=== PATIENT | male | born 1940 | race Caucasian/White ===

== ENCOUNTER 2020-10-26 11:43 | Outpatient (REF) | payer MEDICARE, SELFPAY ==
[2020-10-26 13:22] LABS: Alanine Aminotransferase 19 U/L (0-40); Albumin Level 4.3 g/dL (3.5-5.0); Alkaline Phosphatase 104 U/L (39-117); Anion Gap 13 (12-20); Aspartate Amino Transferase 26 U/L (5-37); Bilirubin Total 0.7 mg/dL (0.0-1.0); Blood Urea Nitrogen 18 mg/dL (9-16); Chloride 104 mmol/L (96-108); Cholesterol 166 mg/dL; Estimated Glomerular Filt Rate > 60; Glucose Fasting 97 mg/dL (60-99); HDL Cholesterol 59 mg/dL; LDL Cholesterol Calculated 92 mg/dl; Potassium 4.2 mmol/l (3.3-5.1); Sodium 139 mmol/L (135-145); Total Protein 6.9 g/dL (6.5-8.0); Triglycerides 76 mg/dL
[2020-10-26 13:24] LABS: Carbon Dioxide 26 mmol/L (22-29)
[2020-10-26 13:37] LABS: Prostate Specific Antigen Scr 0.25 ng/mL (<0.05-4.0)
== END 2020-10-26 11:44 | disposition home or self-care (01) ==
LOC: HO.LAB 11:43
PROVIDERS: PCP Physician Assistant; Visit Provider Physician Assistant
DX: I10 Essential (primary) hypertension (principal); E78.5 Hyperlipidemia, unspecified; R73.09 Other abnormal glucose
CPT/HCPCS: 80053; 80061; 84153; 84443

== ENCOUNTER 2020-11-03 12:06 | Outpatient (REF) | payer MEDICARE, SELFPAY ==
[2020-11-03 12:58] LABS: MANUAL DIFF FLAG NO
[2020-11-03 13:07] LABS: Basophils Percent Auto 0.6 % (0-2); Eosinophils Absolute Auto 0.1 X10*3/uL (0.0-0.4); Eosinophils Percent Auto 1.6 % (0-4); Hematocrit 37.3 % (42-52); Hemoglobin 12.4 g/dl (14.0-18.0); Imm Gran Abs Auto 0.01 X10*3/uL (0.00-0.03); Imm Gran Pct Auto 0.2 % (0.0-0.4); Lymphocytes Absolute Auto 1.2 X10*3/uL (1.2-4.9); Mean Corpuscular HGB Conc 33.2 g/dl (31.0-36.0); Mean Corpuscular Hemoglobin 29.7 pg (27.0-33.0); Mean Corpuscular Volume 89.4 fL (80-98); Mean Platelet Volume 9.9 fL (9.4-12.4); Monocytes Absolute Auto 0.4 X10*3/uL (0.1-1.2); Monocytes Percent Auto 8.4 % (2-11); Neutrophils Absolute Auto 3.2 X10*3/uL (2.0-8.3); Neutrophils Percent Auto 65.2 % (45-73); Platelet Count 244 X10*3/uL (160-400); Red Blood Count 4.17 X10*6/uL (4.60-5.80); Red Cell Distribution Width 13.5 % (11.0-16.0); White Blood Count 4.9 X10*3/uL (4.8-10.8)
[2020-11-03 13:44] LABS: Alanine Aminotransferase 17 U/L (0-40); Albumin Level 4.3 g/dL (3.5-5.0); Alkaline Phosphatase 103 U/L (39-117); Anion Gap 12 (12-20); Aspartate Amino Transferase 24 U/L (5-37); Bilirubin Total 0.6 mg/dL (0.0-1.0); Blood Urea Nitrogen 15 mg/dL (9-16); Calcium 9.1 mg/dL (8.4-10.2); Carbon Dioxide 28 mmol/L (22-29); Chloride 104 mmol/L (96-108); Cholesterol 164 mg/dL; Estimated Glomerular Filt Rate > 60; Glucose Fasting 106 mg/dL (60-99); HDL Cholesterol 65 mg/dL; LDL Cholesterol Calculated 84 mg/dl; Potassium 4.2 mmol/l (3.3-5.1); Sodium 140 mmol/L (135-145); Total Protein 7.2 g/dL (6.5-8.0); Triglycerides 78 mg/dL
[2020-11-03 13:58] LABS: TSH reflex Free T4 0.85 mIU/mL (0.32-4.0)
[2020-11-03 13:59] LABS: Prostate Specific Antigen 0.28 ng/mL (<0.05-4.0)
== END 2020-11-03 12:07 | disposition home or self-care (01) ==
LOC: HO.LAB 12:06
PROVIDERS: Physician Assistant; Visit Provider Urology
DX: E78.1 Pure hyperglyceridemia (principal); I10 Essential (primary) hypertension; Z12.5 Encounter for screening for malignant neoplasm of prostate; Z85.46 Personal history of malignant neoplasm of prostate
CPT/HCPCS: 36415; 80053; 80061; 84153; 84443; 85025

== ENCOUNTER 2020-11-22 16:06 | Outpatient (REF) | payer MEDICARE, SELFPAY | END 2020-11-22 16:07 | disposition home or self-care (01) | LOC: HO.LAB 16:06 | PROVIDERS: PCP Physician Assistant; Visit Provider Internal Medicine | DX: Z20.828 Contact with and (suspected) exposure to other viral communicable diseases (principal) | CPT/HCPCS: C9803; U0003 ==

== ENCOUNTER → 2020-11-23 13:22 | Outpatient (BNVA) | payer MEDICARE, SELFPAY | PROVIDERS: Visit Provider Urology | DX: C61 Malignant neoplasm of prostate (principal); R97.20 Elevated prostate specific antigen [PSA] | CPT/HCPCS: 96402; 99212; J9217 ==

== ENCOUNTER 2021-01-11 14:30 | Outpatient (REF) | payer MEDICARE, SELFPAY | END 2021-01-11 14:31 | disposition home or self-care (01) | LOC: HO.LAB 14:30 | PROVIDERS: Visit Provider Internal Medicine | DX: Z20.822 Contact with and (suspected) exposure to COVID-19 (principal) | CPT/HCPCS: 36415; C9803; U0003; U0005 ==

== ENCOUNTER 2021-02-13 11:57 | Outpatient (REF) | payer MEDICARE, SELFPAY ==
[2021-02-13 13:29] LABS: Prostate Specific Antigen 0.28 ng/mL (<0.05-4.0)
== END 2021-02-13 11:58 | disposition home or self-care (01) ==
LOC: HO.LAB 11:57
PROVIDERS: Visit Provider Urology
DX: Z12.5 Encounter for screening for malignant neoplasm of prostate (principal); C61 Malignant neoplasm of prostate
CPT/HCPCS: 36415; 84153

== ENCOUNTER → 2021-02-28 14:09 | Outpatient (BNVA) | payer MEDICARE, SELFPAY | PROVIDERS: Visit Provider Urology | DX: C61 Malignant neoplasm of prostate (principal) | CPT/HCPCS: 99212 ==

== ENCOUNTER 2021-05-03 12:24 | Outpatient (REF) | payer MEDICARE, SELFPAY ==
[2021-05-03 13:43] LABS: Hematocrit 36.6 % (42-52); Mean Corpuscular HGB Conc 32.8 g/dl (31.0-36.0); Mean Corpuscular Hemoglobin 28.8 pg (27.0-33.0); Mean Corpuscular Volume 87.8 fL (80-98); Mean Platelet Volume 10.4 fL (9.4-12.4); Platelet Count 231 X10*3/uL (160-400); Red Blood Count 4.17 X10*6/uL (4.60-5.80); White Blood Count 5.9 X10*3/uL (4.8-10.8)
[2021-05-03 16:11] LABS: Estimated Average Glucose 126 mg/dL
[2021-05-03 16:31] LABS: TSH reflex Free T4 0.53 uIU/mL (0.32-4.0)
[2021-05-03 16:39] LABS: Alanine Aminotransferase 14 U/L (0-40); Albumin Level 4.3 g/dL (3.5-5.0); Alkaline Phosphatase 106 U/L (39-117); Anion Gap 12 (12-20); Aspartate Amino Transferase 25 U/L (5-37); Bilirubin Total 0.5 mg/dL (0.0-1.0); Blood Urea Nitrogen 17 mg/dL (9-16); Calcium 9.4 mg/dL (8.4-10.2); Carbon Dioxide 28 mmol/L (22-29); Chloride 105 mmol/L (96-108); Cholesterol 162 mg/dL; Estimated Glomerular Filt Rate > 60; Glucose Fasting 107 mg/dL (60-99); HDL Cholesterol 51 mg/dL; LDL Cholesterol Calculated 90 mg/dl; Potassium 4.1 mmol/L (3.3-5.1); Sodium 141 mmol/L (135-145); Triglycerides 108 mg/dL
== END 2021-05-03 12:25 | disposition home or self-care (01) ==
LOC: HO.LAB 12:24
PROVIDERS: Absent Provider Urology; PCP Physician Assistant; Visit Provider Physician Assistant
DX: I10 Essential (primary) hypertension (principal); E78.1 Pure hyperglyceridemia
CPT/HCPCS: 36415; 80053; 80061; 83036; 84443; 85027

== ENCOUNTER → 2021-05-16 13:46 | Outpatient (BNVA) | payer MEDICARE, SELFPAY | PROVIDERS: Visit Provider Urology | DX: C61 Malignant neoplasm of prostate (principal) | CPT/HCPCS: 96402; 99212; J9217 ==

== ENCOUNTER 2021-10-16 15:01 | Outpatient (REF) | payer MEDICARE, SELFPAY ==
[2021-10-16 17:29] LABS: Prostate Specific Antigen 1.05 ng/mL (<0.05-4.0)
[2021-10-20 08:56] LABS: Testosterone, Total 35 ng/dL (250-1100)
== END 2021-10-16 15:02 | disposition home or self-care (01) ==
LOC: HO.HMGCLDS 15:01
PROVIDERS: Visit Provider Urology
DX: Z12.5 Encounter for screening for malignant neoplasm of prostate (principal); C61 Malignant neoplasm of prostate; N13.8 Other obstructive and reflux uropathy; N40.1 Benign prostatic hyperplasia with lower urinary tract symptoms
CPT/HCPCS: 36415; 84153; 84403

== ENCOUNTER 2021-10-24 09:07 | Outpatient (REF) | payer MEDICARE, SELFPAY ==
--- NOTE | ~2021-10-24 | MM_ITS ---
EXAMINATION: BONE DENSITOMETRY CLINICAL INDICATION: M85.80 - Other specified disorders of bone density. COMPARISON: None (current study represents initial baseline exam). TECHNIQUE: Using a [employer] DXA System (software version: 13.1) manufactured by [employer], dual-energy x-ray absorptiometry was performed of the lumbar spine and left hip. The images are of good technical quality. Summary results are attached. FINDINGS: AP SPINE L1-L4: BMD 1.426 g/cm2, Z-score 2.9, T-score 1.7, normal. LEFT FEMUR, NECK: BMD 0.562 g/cm2, Z-score -2.0, T-score -3.9, osteoporosis. LEFT FEMUR, TOTAL: BMD 0.738 g/cm2, Z-score -1.0, T-score -2.5, osteoporosis. IDENTIFIED RISK FACTORS: Unsteady gait. HISTORY OF FRACTURE: None listed. MEDICATIONS: None listed. MM/XR DEXA axial skeleton IMPRESSION: 1. DIAGNOSIS: Osteoporosis based on the lowest T-score value of -3.9 in the femoral neck applying World Health Organization criteria. 2. 10-YEAR FRACTURE RISK PREDICTION, FRAX: According to the guidelines, FRAX calculation should only be performed on patients in the osteopenia bone density category. 3. Treatment Recommendations: NOF guidelines recommend consideration for treatment in postmenopausal women and men age 50 and older presenting with the following: -A hip or vertebral (clinical or morphometric) fracture. -T-score less than or equal to -2.5 at the femoral neck or spine after appropriate evaluation to exclude secondary causes. -Low bone mass at the hip or spine and a 10-year fracture probability by FRAX of greater than or equal to 3% for hip fracture or greater than or equal to 20% for major osteoporotic fracture based on the [place] adapted WHO algorithm. 4. Other Recommendations: All treatment decisions require clinical judgment and consideration of individual patient factors, including patient preferences, comorbidities, and previous drug use. Additional medical evaluation for secondary cause of low bone mineral density may be appropriate. FUTURE SCAN RECOMMENDATION: People with diagnosed cases of osteoporosis or at high risk for fracture should have regular bone mineral density tests. For patients eligible for Medicare, routine testing is allowed once every 2 years. The testing frequency can be increased to one year for patients who have rapidly progressing disease, those who are receiving or discontinuing medical therapy to restore bone mass, or have additional risk factors.
== END 2021-10-24 09:08 | disposition home or self-care (01) ==
LOC: HO.MAMMO 09:07
PROVIDERS: Visit Provider Urology
DX: Z13.820 Encounter for screening for osteoporosis (principal); M81.0 Age-related osteoporosis without current pathological fracture; M85.80 Other specified disorders of bone density and structure, unspecified site; C61 Malignant neoplasm of prostate
CPT/HCPCS: 77080

== ENCOUNTER → 2021-10-31 12:41 | Outpatient (BNVA) | payer MEDICARE, SELFPAY | PROVIDERS: PCP Physician Assistant; Visit Provider Urology | DX: Z13.89 Encounter for screening for other disorder (principal) | CPT/HCPCS: Q3014 ==

== ENCOUNTER 2022-04-05 15:43 | Outpatient (REF) | payer MEDICARE, SELFPAY ==
[2022-04-05 16:27] LABS: Hematocrit 33.9 % (42.0-52.0); Hemoglobin 11.2 g/dl (14.0-18.0); Mean Corpuscular Hemoglobin 29.2 pg (27.0-33.0); Mean Corpuscular Volume 88.3 fL (80.0-98.0); Platelet Count 212 X10*3/uL (160-400); Red Blood Count 3.84 X10*6/uL (4.60-5.80); Red Cell Distribution Width 14.6 % (11.0-16.0); White Blood Count 6.5 X10*3/uL (4.8-10.8)
[2022-04-05 16:41] LABS: Estimated Average Glucose 120 mg/dL; Hemoglobin A1c % 5.8 %
[2022-04-05 16:45] LABS: Creatinine Urine 146.05 mg/dL; Microalbum/Creatinine Ratio Ur 11.6 ug/mg cr
[2022-04-05 16:48] LABS: Alanine Aminotransferase 28 U/L (0-40); Albumin Level 4.4 g/dL (3.5-5.0); Alkaline Phosphatase 103 U/L (39-117); Anion Gap 13 (12-20); Aspartate Amino Transferase 28 U/L (5-37); Bilirubin Total 0.3 mg/dL (0.0-1.0); Blood Urea Nitrogen 19 mg/dL (9-16); Calcium 9.4 mg/dL (8.4-10.2); Carbon Dioxide 27 mmol/L (22-29); Chloride 103 mmol/L (96-108); Cholesterol 167 mg/dL; Estimated Glomerular Filt Rate > 60; Glucose Fasting 93 mg/dL (60-99); HDL Cholesterol 54 mg/dL; LDL Cholesterol Calculated 92 mg/dl; Potassium 4.5 mmol/L (3.3-5.1); Sodium 138 mmol/L (135-145); Total Protein 7.3 g/dL (6.5-8.0); Triglycerides 106 mg/dL
[2022-04-05 17:08] LABS: TSH reflex Free T4 0.78 uIU/mL (0.32-4.0)
[2022-04-05 17:44] LABS: Prostate Specific Antigen 8.33 ng/mL (<0.05-4.0)
[2022-04-10 01:56] LABS: Testosterone, Total 128 ng/dL (250-1100)
== END 2022-04-05 15:44 | disposition home or self-care (01) ==
LOC: HO.LAB 15:43
PROVIDERS: PCP Physician Assistant; Visit Provider Urology
DX: I10 Essential (primary) hypertension (principal); E78.1 Pure hyperglyceridemia; C61 Malignant neoplasm of prostate; R73.02 Impaired glucose tolerance (oral); Z12.5 Encounter for screening for malignant neoplasm of prostate
CPT/HCPCS: 36415; 80053; 80061; 82043; 83036; 84153; 84403; 84443; 85027

== ENCOUNTER → 2022-05-01 13:45 | Outpatient (BNVA) | payer MEDICARE, SELFPAY | PROVIDERS: PCP Physician Assistant; Visit Provider Urology | DX: C61 Malignant neoplasm of prostate (principal); M81.0 Age-related osteoporosis without current pathological fracture | CPT/HCPCS: 96372; 99212; J0897 ==

== ENCOUNTER 2022-10-25 08:01 | Outpatient (REF) | payer MEDICARE, SELFPAY ==
[2022-10-25 11:24] LABS: Hematocrit 38.2 % (42.0-52.0); Hemoglobin 12.2 g/dl (14.0-18.0); Mean Corpuscular HGB Conc 31.9 g/dl (31.0-36.0); Mean Corpuscular Volume 90.7 fL (80.0-98.0); Mean Platelet Volume 10.6 fL (9.4-12.4); Platelet Count 238 X10*3/uL (160-400); Red Blood Count 4.21 X10*6/uL (4.60-5.80); Red Cell Distribution Width 14.7 % (11.0-16.0); White Blood Count 5.9 X10*3/uL (4.8-10.8)
[2022-10-25 12:09] LABS: TSH reflex Free T4 1.35 uIU/mL (0.32-4.0)
[2022-10-25 12:27] LABS: Alanine Aminotransferase 40 U/L (0-40); Albumin Level 4.6 g/dL (3.5-5.0); Alkaline Phosphatase 99 U/L (39-117); Anion Gap 11 (12-20); Aspartate Amino Transferase 35 U/L (5-37); Bilirubin Total 0.3 mg/dL (0.0-1.0); Blood Urea Nitrogen 17 mg/dL (9-16); Calcium 9.4 mg/dL (8.4-10.2); Carbon Dioxide 29 mmol/L (22-29); Chloride 102 mmol/L (96-108); Cholesterol 170 mg/dL; Estimated Glomerular Filt Rate > 60; Glucose Fasting 103 mg/dL (60-99); HDL Cholesterol 53 mg/dL; LDL Cholesterol Calculated 81 mg/dl; Potassium 4.5 mmol/L (3.3-5.1); Prostate Specific Antigen 11.71 ng/mL (<0.05-4.0); Sodium 137 mmol/L (135-145); Total Protein 7.5 g/dL (6.5-8.0); Triglycerides 180 mg/dL
[2022-10-31 11:54] LABS: Testosterone, Total 203 ng/dL (250-1100)
== END 2022-10-25 08:02 | disposition home or self-care (01) ==
LOC: HO.HMGCLDS 08:01
PROVIDERS: PCP Physician Assistant; Visit Provider Urology
DX: C61 Malignant neoplasm of prostate (principal); I10 Essential (primary) hypertension; E78.1 Pure hyperglyceridemia
CPT/HCPCS: 36415; 80053; 80061; 84153; 84403; 84443; 85027

== ENCOUNTER → 2022-10-31 14:12 | Outpatient (BNVA) | payer MEDICARE, SELFPAY | PROVIDERS: PCP Physician Assistant; Visit Provider Urology | DX: C61 Malignant neoplasm of prostate (principal); M81.0 Age-related osteoporosis without current pathological fracture | CPT/HCPCS: 96372; 99212; J0897 ==

== ENCOUNTER → 2022-12-03 13:39 | Outpatient (BNVA) | payer MEDICARE, SELFPAY | PROVIDERS: PCP Physician Assistant; Visit Provider Urology | DX: C61 Malignant neoplasm of prostate (principal) | CPT/HCPCS: 96402; J9217 ==

== ENCOUNTER 2023-01-21 08:13 | Outpatient (REF) | payer MEDICARE, SELFPAY ==
[2023-01-21 12:48] LABS: Prostate Specific Antigen 10.72 ng/mL (<0.05-4.0)
[2023-01-28 10:28] LABS: Testosterone, Total 208 ng/dL (250-1100)
== END 2023-01-21 08:14 | disposition home or self-care (01) ==
LOC: HO.HMGCLDS 08:13
PROVIDERS: PCP Physician Assistant; Visit Provider Urology
DX: Z12.5 Encounter for screening for malignant neoplasm of prostate (principal); C61 Malignant neoplasm of prostate
CPT/HCPCS: 36415; 84153; 84403

== ENCOUNTER → 2023-02-05 12:33 | Outpatient (BNVA) | payer MEDICARE, SELFPAY | PROVIDERS: PCP Physician Assistant; Visit Provider Urology | DX: C61 Malignant neoplasm of prostate (principal); R97.21 Rising PSA following treatment for malignant neoplasm of prostate | CPT/HCPCS: 99212 ==

== ENCOUNTER → 2023-02-15 12:58 | Outpatient (BNVA) | payer MEDICARE, SELFPAY | PROVIDERS: PCP Physician Assistant; Visit Provider Urology | DX: M81.0 Age-related osteoporosis without current pathological fracture (principal); C61 Malignant neoplasm of prostate; R97.21 Rising PSA following treatment for malignant neoplasm of prostate | CPT/HCPCS: Q3014 ==

== ENCOUNTER 2023-05-06 08:01 | Outpatient (REF) | payer MEDICARE, SELFPAY ==
[2023-05-06 11:30] LABS: Hematocrit 34.6 % (42.0-52.0); Hemoglobin 11.1 g/dl (14.0-18.0); Mean Corpuscular HGB Conc 32.1 g/dl (31.0-36.0); Mean Corpuscular Hemoglobin 28.5 pg (27.0-33.0); Mean Corpuscular Volume 88.7 fL (80.0-98.0); Mean Platelet Volume 10.7 fL (9.4-12.4); Platelet Count 234 X10*3/uL (160-400); Red Cell Distribution Width 15.9 % (11.0-16.0)
[2023-05-06 12:04] LABS: TSH reflex Free T4 1.04 uIU/mL (0.32-4.0)
[2023-05-06 12:17] LABS: Prostate Specific Antigen 2.79 ng/mL (<0.05-4.0)
[2023-05-12 11:32] LABS: Testosterone, Total 113 ng/dL (250-1100)
== END 2023-05-06 08:02 | disposition home or self-care (01) ==
LOC: HO.HMGCLDS 08:01
PROVIDERS: Absent Provider Urology; PCP Physician Assistant; Visit Provider Physician Assistant
DX: C61 Malignant neoplasm of prostate (principal); I10 Essential (primary) hypertension; Z12.5 Encounter for screening for malignant neoplasm of prostate
CPT/HCPCS: 36415; 84153; 84403; 84443; 85027

== ENCOUNTER → 2023-05-23 10:38 | Outpatient (BNVA) | payer MEDICARE, SELFPAY | PROVIDERS: Visit Provider Urology | DX: R97.21 Rising PSA following treatment for malignant neoplasm of prostate (principal); M81.0 Age-related osteoporosis without current pathological fracture; C61 Malignant neoplasm of prostate | CPT/HCPCS: 96372; 96402; 99212; J0897; J9217 ==

== ENCOUNTER 2023-08-12 07:55 | Outpatient (REF) | payer MEDICARE, SELFPAY ==
[2023-08-12 11:35] LABS: Hematocrit 36.4 % (42.0-52.0); Hemoglobin 11.7 g/dl (14.0-18.0); Mean Corpuscular HGB Conc 32.1 g/dl (31.0-36.0); Mean Corpuscular Hemoglobin 28.7 pg (27.0-33.0); Mean Corpuscular Volume 89.4 fL (80.0-98.0); Mean Platelet Volume 10.6 fL (9.4-12.4); Platelet Count 248 X10*3/uL (160-400); Red Blood Count 4.07 X10*6/uL (4.60-5.80); Red Cell Distribution Width 15.8 % (11.0-16.0); White Blood Count 5.5 X10*3/uL (4.8-10.8)
[2023-08-12 12:03] LABS: Alanine Aminotransferase 22 U/L (0-40); Albumin Level 4.4 g/dL (3.5-5.0); Alkaline Phosphatase 81 U/L (39-117); Anion Gap 10 (12-20); Aspartate Amino Transferase 27 U/L (5-37); Bilirubin Total 0.4 mg/dL (0.0-1.0); Blood Urea Nitrogen 17 mg/dL (9-16); Calcium 9.1 mg/dL (8.4-10.2); Carbon Dioxide 27 mmol/L (22-29); Chloride 108 mmol/L (96-108); Cholesterol 159 mg/dL (<200); Estimated Glomerular Filt Rate > 60; Glucose Fasting 99 mg/dL (60-99); HDL Cholesterol 50 mg/dL (>40); LDL Cholesterol Calculated 85 mg/dL (<100); Potassium 4.1 mmol/L (3.3-5.1); Sodium 141 mmol/L (135-145); Total Protein 7.6 g/dL (6.5-8.0); Triglycerides 124 mg/dL (<150)
[2023-08-12 12:11] LABS: Prostate Specific Antigen 4.57 ng/mL (<0.05-4.0)
[2023-08-15 13:04] LABS: Creatinine Urine 242.16 mg/dL; Microalbum/Creatinine Ratio Ur 14.4 ug/mg cr (<30)
[2023-08-16 13:42] LABS: Testosterone, Total 50 ng/dL (250-1100)
== END 2023-08-12 07:56 | disposition home or self-care (01) ==
LOC: HO.HMGCLDS 07:55
PROVIDERS: Absent Provider Urology; PCP Physician Assistant; Visit Provider Physician Assistant
DX: Z12.5 Encounter for screening for malignant neoplasm of prostate (principal); C61 Malignant neoplasm of prostate; I10 Essential (primary) hypertension; E78.1 Pure hyperglyceridemia
CPT/HCPCS: 36415; 80053; 80061; 82043; 82570; 84153; 84403; 85027

== ENCOUNTER 2023-08-23 14:40 | Outpatient (AMB) | payer MEDICARE, SELFPAY ==
--- NOTE | 2023-08-23 14:41 | A.OFFVIS_ITS ---
Intake Intake Visit Reasons: 3m/PSA/Testosterone(set) Intake Note: Patient is Present for Telephone Follow Up For Labs Urology Med: Bicalutamide, Antibiotic Allergy: None Blood Thinner: None Pharamcy: [employer] Allergies No Known Allergies Allergy (Verified 05/23/23 10:55) Medication List - Last Reconciled 08/23/23 by Ranjan Stanley MD bicalutamide 50 mg PO DAILY 90 days buspirone 5 mg PO TID diclofenac sodium 75 mg PO BID PRN 15 days diclofenac sodium 1% 2 grams topical QID 30 days donepezil (Aricept) 10 mg PO DAILY 90 days lisinopril 10 mg PO DAILY lovastatin 40 mg PO DAILY meclizine 25 mg PO DAILY PRN omega-3 fatty acids (Fish Oil Concentrate) 1,000 mg PO DAILY HPI HPI Comments History of Present Illness Details Mickey is pleasant male. He is a patient of Dr. Monahan. He seen for the following urologic conditions - prostate cancer - osteoporosis Telemedicine Evaluation 15 min Consultation DoxGarpun Leandra Video attempted 08/17 Rising PSA despite appropriate horm one shot stop bicalutamide - repeat PSA in 4 weeks 05/17 Here for repeat GnRH and Prolia 02/14 added bicalutamide Prostate cancer - Last GnRH 11/[address] 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 DEXA scan 10/15 osteoporosis PFSH Medical History Acid reflux Elevated PSA Primary osteoarthritis of left knee Prostate cancer Prostate cancer Rotator cuff tear Rotator cuff tear arthropathy of right shoulder Tendinitis of right rotator cuff Surgical History H/O hand surgery History of tonsillectomy Hx of release of tendon Family History Father Liver cancer Mother Heart disease Brother Healthy adult male Social History Housing: House Alcohol intake: never Patient Tobacco Use Status: Never used Tobacco e-Cigarette/Vaping Use: Never Used Second Hand Smoke Exposure: No service: No Current occupational status: retired Cognitive needs: Yes (cane) Hearing needs: No Vision needs: No Review of Systems Const All systems reviewed & are unremarkable except as noted in HPI and below Reports no additional complaints Resp Reports no additional complaints GI Reports no additional complaints Reports as per HPI Musc Reports no additional complaints Physical Exam Telemedicine evaluation Appropriate responses Regular breathing rate and rhythm HEENT Head: Yes normal to inspection Ears: hearing grossly normal bilaterally Eyes General: appearance normal, both eyes and all related structures Neck Neck: Yes normal visual inspection Chest Chest palpation & inspection: normal inspection of the chest Resp Effort & Inspection: normal respiratory effort and able to speak in complete sentences Assessment & Plan Assessment & Plan (1) Rising PSA following treatment for malignant neoplasm of prostate: Code(s): R97.21 - Rising PSA following treatment for malignant neoplasm of prostate Plan Stop Bicalutamide Repeat PSA in 4 weeks Orders: Orders Prostate Specific Antigen 1 Month C61 - Malignant neoplasm of prostate Patient Instructions: Imaging studies, laboratory and physical exam results were discussed and reviewed in detail. No major barriers to patient understanding were identified. An opportunity to ask questions regarding the treatment plan was provided. All questions were answered. The patient expressed understanding and agreement with the above treatment plan. The patient is aware they should contact our office by phone for worsening of their current condition or the appearance of new urologic symptoms. Compliance is encouraged with any medications and followup testing that is ordered. It is a privilege to participate in the urologic care of your patient. If you have any questions or concerns regarding treatment for the above conditions, or other urologic issues, please do not hesitate to contact me. The office telephone contact is [phone]. This note is constructed using voice recognition software. While every effort has been made to ensure accuracy dredge pump operator errors may have been included. Yours sincerely, Dr Ranjan Stanley MD, [facility] - Urology Providers of Expert, Compassionate Care for the Genitourinary System Telehealth Telehealth Location of provider rendering services: practice address Location of patient: address on file Patient Identification confirmed using: Name, : Yes Telehealth method: video Patient verbally consented to treatment: Yes Patient verbally consented to billing insurance company: Yes Patient informed of any privacy concerns related to visit: Yes Coding Level of Care Code Tele Est Pt Level 3 (15871) Diagnoses Rising PSA following treatment for malignant neoplasm of prostate R97.21
== END 2023-08-23 15:21 | disposition home or self-care (01) ==
LOC: HO.HUSH 14:40
PROVIDERS: PCP Physician Assistant; Visit Provider Urology
DX: R97.21 Rising PSA following treatment for malignant neoplasm of prostate (principal)
CPT/HCPCS: 99213

== ENCOUNTER → 2023-08-23 14:40 | Outpatient (BNVA) | payer MEDICARE, SELFPAY | PROVIDERS: PCP Physician Assistant; Visit Provider Urology ==

== ENCOUNTER 2023-10-01 11:33 | Outpatient (REF) | payer MEDICARE, SELFPAY ==
--- NOTE | ~2023-10-01 | PE_ITS ---
EXAMINATION: 68Ga-PSMA (ILLUCCIX) PET/CT CLINICAL INDICATION: Subsequent treatment management. Prostate cancer with rising PSA, restaging. PROCEDURE: Radiopharmaceutical: 68Ga-PSMA (Illuccix); Dose: 5.5 mCi injected in the left antecubital fossa. Image acquisition: 65 minutes following IV radiotracer administration, positron emission tomography was performed from the mid thighs to vertex. Non-contrast low-dose helical CT imaging was performed over the same range without breath-hold for attenuation correction of PET images and anatomic correlation. Total CT exam dose-length product 619.23 mGy-cm * These CT images were obtained using dose optimization techniques as appropriate, variously including the following: Automated exposure control * Adjustment of mA and/or kV according to patient size (this includes techniques or standardized protocols for targeted exams where dose is matched to indication/reason for exam; i.e. extremities or head) * Use of iterative reconstruction technique COMPARISON: No previous PET/CT scan is available for comparison. Additional Clinical information: Surgery:No ; XRT: No ADT: Unknown FINDINGS: NECK AND VISUALIZED HEAD: There are no foci of abnormal PSMA activity in this region. The distribution of activity appears physiological. THORAX: There are no foci of abnormal PSMA activity in the chest. There are no suspicious pulmonary nodules. There is no pleural or pericardial fluid, or pneumothorax. There is no mediastinal, supraclavicular, or axillary lymphadenopathy. ABDOMEN AND PELVIS: There is intense abnormal PSMA activity in the right posterolateral aspect of the mid to inferior aspect of the prostate gland, SUVmax 28.7, slice 222/311. No other foci of abnormal PSMA activity are noted in the abdomen or pelvis. The liver and spleen are unremarkable. There is some dependent sludge in the gallbladder but the gallbladder is otherwise unremarkable. There is a hypodense fluid density cyst posteriorly in the mid right kidney and this is photopenic on the PSMA PET images. The kidneys are otherwise unremarkable. The adrenal glands and pancreas are unremarkable. There is mild PSMA activity in the gastrointestinal tract, likely physiological. There is diverticulosis without evidence of diverticulitis. The hollow viscera are otherwise unremarkable. There is no retroperitoneal, mesenteric, pelvic or inguinal lymphadenopathy. MUSCULOSKELETAL: There are no foci of abnormal PSMA activity in the osseous structures. There is a mild well compensated thoracolumbar scoliosis with lumbar convexity to the left. There are moderate diffuse degenerative changes in the spine. There are no suspicious sclerotic or lytic lesions visualized. VASCULAR: Diffuse vascular calcifications including dense coronary calcifications. PET/PET CT fusion skull to thigh IMPRESSION: 1. Intense abnormal PSMA activity in the prostate gland is present as described above and this is strongly suspicious for recurrent prostate malignancy. 2. No additional foci of abnormal PSMA suspicious for metastatic or other malignant lesions are noted. 3. Diffuse vascular calcifications including coronary.
== END 2023-10-01 11:34 | disposition home or self-care (01) ==
LOC: HO.PET 11:33
PROVIDERS: PCP Physician Assistant; Visit Provider Urology
DX: Z13.89 Encounter for screening for other disorder (principal)

== ENCOUNTER 2023-10-16 12:49 | Outpatient (AMB) | payer MEDICARE, SELFPAY ==
--- NOTE | 2023-10-16 12:50 | A.OFFVIS_ITS ---
Intake Vital Signs 10/16/23 12:51 Height 5 ft 7 in Weight 147 lb 8 oz BMI 23.1 BP 128/64 Blood Pressure Location Lt brachial Position Sitting Respiration 17 Pulse 88 Pulse Source Pulse Oximeter Intake Visit Reasons: I-SLIP LASTER: Alzheimer's /Dementia - Conf Intake Note: Pt presents to the office for new pt evaluation for possible dementia. Pt is here with his son in law, Maximino, who is also his historian. He reports pt has been having alot of memory loss for several years. There is also a complaint of agitation, unsteady gait, hallucinations and sleep disturbances. He's been havin g some incontinence, though he is still is capable of dressing himself. Pt eats but doesn't remember he's had a meal a short time after. Fraud Examiner Required: No Allergies No Known Allergies Allergy (Verified 10/16/23 12:51) Medication List - Last Reconciled 10/16/23 by Trudy Crooks MD bicalutamide 50 mg PO DAILY 90 days buspirone 5 mg PO TID diclofenac sodium 75 mg PO BID PRN 15 days diclofenac sodium 1% 2 grams topical QID 30 days donepezil (Aricept) 10 mg PO DAILY 90 days lisinopril 10 mg PO DAILY lovastatin 40 mg PO DAILY meclizine 25 mg PO DAILY PRN melatonin 6 mg (2 x 3 mg) PO BEDTIME 30 days mirtazapine 7.5 mg PO BEDTIME omega-3 fatty acids (Fish Oil Concentrate) 1,000 mg PO DAILY HPI HPI Comments History of Present Illness Details 82y/o male comes here for further manage ment dementia. He is accompanied by his son in law who helps with history.His family noticed progressive memory issues and executive dysfunction about 2-3 years ago . He lives with his Girlfriend ( 40years ) and has been dependant on most of his ADLS. He needs help with medications , needs cuing for daily activity. He has anxiety and can become aggressive sometimes. He repeats questions. It is not clear if he has delusions, hallucinations.He stopped driving 2 years ago. He did boxing as a kid - but was only in1 fight so not clear if he has head injury. No known family h/o dementia. He has day night reversal , no known abnormal behavior in sleep. [facility] Medical History (Updated 10/16/23 @ 15:41 by Trudy Crooks MD) Alzheimer's dementia Prostate cancer Acid reflux Primary osteoarthritis of left knee Prostate cancer Elevated PSA Tendinitis of right rotator cuff Rotator cuff tear Rotator cuff tear arthropathy of right shoulder Surgical History Hx of release of tendon H/O hand surgery History of tonsillectomy Family History Father Liver cancer Mother Heart disease Brother Healthy adult male Household Members: Spouse Housing: House Alcohol intake: never Patient Tobacco Use Status: Never used Tobacco e-Cigarette/Vaping Use: Never Used Second Hand Smoke Exposure: No service: No Current occupational status: retired Cognitive needs: Yes (cane) Hearing needs: No Vision needs: No Review of Systems Neuro Reports confusion Psych Reports confusion Physical Exam Vital Signs: Last Vital Signs Pulse 88 10/16/23 12:51 Resp 17 10/16/23 12:51 BP 128/64 10/16/23 12:51 BMI result Body Mass Index 23.1 Const General: cooperative, healthy appearing, comfortable and confusion Nutritional Appearance: average body habitus Orientation/consciousness: confusion Eyes Pupils: Equal, round and reactive pupils present Neuro Other: Disoriented Unable to do MMSE walks with a cane, mildly impulsive General: tone normal, moves all extremities, no focal motor deficits and confusion Cranial nerves: Yes Facial sensation intact/muscles of mastication intact, Yes Equal, round and reactive pupils present, Yes Bilaterally intact EOM present, Yes Nystagmus not present, Yes Normal facial strength present, Yes Midline tongue present and Yes Ability to bilaterally elevate shoulders present Cognition (Neuro): abnormal cognition Motor exam (neuro): 5/5 motor strength present throughout and Normal motor muscle tone present throughout Deep tendon reflexes (DTR's): Right triceps reflex intensity grade: 1+, Left triceps reflex intensity grade: 1+, Rt Biceps (C5, C6): 1+, Left biceps reflex intensity grade: 1+, Right brachioradialis reflex intensity grade: 1+, Left brachioradialis reflex intensity grade: 1+, Right patellar reflex intensity grade: 1+ and Left patellar reflex intensity grade: 1+ Coordination: [id number] test normal Assessment & Plan Assessment & Plan (1) Alzheimer's dementia: Comment: moderate to severe Code(s): G30.9 - Alzheimer's disease, unspecified; F02.80 - Dementia in other diseases classified elsewhere, unspecified severity, without behavioral disturbance, psychotic disturbance, mood disturbance, and anxiety Plan Continue donepezil 10 mg qd I will trial him on mirtazepine 7.5 mg qhs for sleep Discussed the diagnosis and prognosis . will refer him to [facility]NA services to get some [employer]URING SUPERVISOR services Reviewed labs will order CT brain to r/o focal lesions will schedule a follow up with patient and his family for bed bug exterminator care planning Orders: Orders CT head/brain wo IV con 10/16/23 F02.80 - Dementia in other diseases classified elsewhere, unspecified severity, without behavioral disturbance, psychotic disturbance, mood disturbance, and anxiety, G30.9 - Alzheimer's disease, unspecified [facility]errals [facility] Referral F02.80 - Dementia in other diseases classified elsewhere, unspecified severity, without behavioral disturbance, psychotic disturbance, mood disturbance, and anxiety, G30.9 - Alzheimer's disease, unspecified Neurology Referral F02.80 - Dementia in other diseases classified elsewhere, unspecified severity, without behavioral disturbance, psychotic disturbance, mood disturbance, and anxiety, G30.9 - Alzheimer's disease, unspecified Medications: New mirtazapine 7.5 mg PO BEDTIME 30 tabs 6RF Coding Level of Care Code New Pt Level 4 (01419) Diagnoses Alzheimer's dementia G30.9; F02.80
[2023-10-16 12:51] VITALS: BP 128/64; PULSE 88; RESP 17; BMI 23.1
--- NOTE | 2024-02-19 09:09 | ...WebTmpl.AM.PHNO ---
Nursing Note Discussed with Mehreen patients about side effects to Mirtazepine. He was started on Mirtazepine 7.5 mg qhs on Sep 2023- Mehreen noticed change in personality , agitation and verbally aggressive. she stopped after 20 days. His cognition and behavior worsened and he has trouble with ADLS. He is incontinent on most nights, needs help with showers dressing and refuses sometimes, very confused- he tried to put napkins in the toaster oven .. He was started on mematine XR 7mg titrated to 21 mg - he did well with no side effects when he increased to 28 mg Mehreen also retrialed on mirtazepine - he had behavior issues and she is not clear if it is due to memantine or mirtazepine I suggested to stop mirtazepine and retrial memantine XR 28 mg [facility] starting next week- referred for long-term and OT Patient will benefit from Bi Architect placement in a Memory Care Unit . During todays conversation Mehreen seemed overwhelmed with his care.
== END 2023-10-16 13:47 | disposition home or self-care (01) ==
PROVIDERS: PCP Physician Assistant; Visit Provider Psychiatry & Neurology Neurology
DX: G30.9 Alzheimer's disease, unspecified (principal); F02.80 Dementia in other diseases classified elsewhere, unspecified severity, without behavioral disturbance, psychotic disturbance, mood disturbance, and anxiety
CPT/HCPCS: 99204

== ENCOUNTER → 2023-10-16 12:49 | Outpatient (BNVA) | payer MEDICARE, SELFPAY | PROVIDERS: PCP Physician Assistant; Visit Provider Psychiatry & Neurology Neurology | DX: G30.9 Alzheimer's disease, unspecified (principal); F02.80 Dementia in other diseases classified elsewhere, unspecified severity, without behavioral disturbance, psychotic disturbance, mood disturbance, and anxiety | CPT/HCPCS: 99202 ==

== ENCOUNTER 2023-10-21 13:33 | Outpatient (REF) | payer MEDICARE, SELFPAY | END 2023-10-21 13:34 | disposition home or self-care (01) | LOC: HO.LAB 13:33 | PROVIDERS: PCP Physician Assistant; Visit Provider Urology | DX: Z12.5 Encounter for screening for malignant neoplasm of prostate (principal); C61 Malignant neoplasm of prostate | CPT/HCPCS: 36415; 84153 ==

== ENCOUNTER 2023-10-23 13:05 | Outpatient (AMB) | payer MEDICARE, SELFPAY ==
--- NOTE | 2023-10-23 13:05 | A.OFFVIS_ITS ---
Intake Intake Visit Reasons: 6w/PSA/PET CT(set) Intake Note: Patient is Present for Telephone Follow Up For Labs Urology Med: Bicalutamide, Antibiotic Allergy: None Blood Thinner: None Pharamcy: Tiny Cdl Driver Required: No Accompanied by: Self / Same As Patient Allergies No Known Allergies Allergy (Verified 10/16/23 12:51) Medication List - Last Reconciled 10/23/23 by Ranjan Stanley MD bicalutamide 50 mg PO DAILY 90 days buspirone 5 mg PO TID diclofenac sodium 75 mg PO BID PRN 15 days diclofenac sodium 1% 2 grams topical QID 30 days donepezil (Aricept) 10 mg PO DAILY 90 days lisinopril 10 mg PO DAILY lovastatin 40 mg PO DAILY meclizine 25 mg PO DAILY PRN melatonin 6 mg (2 x 3 mg) PO BEDTIME 30 days mirtazapine 7.5 mg PO BEDTIME omega-3 fatty acids (Fish Oil Concentrate) 1,000 mg PO DAILY HPI HPI Comments History of Present Illness Details Mickey is pleasant male. He is a patient of Dr. Monahan. He seen for the following urologic conditions - prostate cancer - osteoporosis Telemedicine Evaluation 15 min Consultation Doximity Leandra Video attempted PSA fell of bicalutamide PET-CT shows localized prostate cancer activity Repeat lab work in 4 weeks, GnRH in Prolia in 6 weeks 10/17 PSA 2.8 PET/CT There is intense abnormal PSMA activity in the right posterolateral aspect of the mid to inferior aspect of the prostate gland 08/17 Rising PSA despite appropriate horm one shot stop bicalutamide - repeat PSA in 4 weeks - T 50 05/17 Here for repeat GnRH and Prolia 02/14 added bicalutamide Prostate cancer - Last GnRH 11/[address] 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 DEXA scan 10/15 osteoporosis PFSH Medical History (Updated 10/16/23 @ 15:41 by Trudy Crooks MD) Alzheimer's dementia Prostate cancer Acid reflux Primary osteoarthritis of left knee Prostate cancer Elevated PSA Tendinitis of right rotator cuff Rotator cuff tear Rotator cuff tear arthropathy of right shoulder Surgical History Hx of release of tendon H/O hand surgery History of tonsillectomy Family History Father Liver cancer Mother Heart disease Brother Healthy adult male Social History Household Members: Spouse Caregiver staying overnight: Yes Housing: House Alcohol intake: never Comment: seldom Patient Tobacco Use Status: Never used Tobacco e-Cigarette/Vaping Use: Never Used Second Hand Smoke Exposure: No service: No Current occupational status: retired Cognitive needs: Yes (cane) Hearing needs: No Vision needs: No Review of Systems Const All systems reviewed & are unremarkable except as noted in HPI and below Reports no additional complaints Resp Reports no additional complaints GI Reports no additional complaints Reports as per HPI Musc Reports no additional complaints Physical Exam Telemedicine evaluation Appropriate responses Regular breathing rate and rhythm HEENT Head: Yes normal to inspection Ears: hearing grossly normal bilaterally Eyes General: appearance normal, both eyes and all related structures Neck Neck: Yes normal visual inspection Chest Chest palpation & inspection: normal inspection of the chest Resp Effort & Inspection: normal respiratory effort and able to speak in complete sentences Assessment & Plan Assessment & Plan (1) Prostate cancer: Comment: Intermittent hormone therapy Code(s): C61 - Malignant neoplasm of prostate Plan Six week follow-up lab work, GnRH Orders: Orders Testosterone, Total 4 Weeks C61 - Malignant neoplasm of prostate Prostate Specific Antigen 4 Weeks E11.69 - Type 2 diabetes mellitus with other specified complication, N52.1 - Erectile dysfunction due to diseases classified elsewhere Patient Instructions: Imaging studies, laboratory and physical exam results were discussed and reviewed in detail. No major barriers to patient understanding were identified. An opportunity to ask questions regarding the treatment plan was provided. All questions were answered. The patient expressed understanding and agreement with the above treatment plan. The patient is aware they should contact our office by phone for worsening of their current condition or the appearance of new urologic symptoms. Compliance is encouraged with any medications and followup testing that is ordered. It is a privilege to participate in the urologic care of your patient. If you have any questions or concerns regarding treatment for the above conditions, or other urologic issues, please do not hesitate to contact me. The office telephone contact is [phone]. This note is constructed using voice recognition software. While every effort has been made to ensure accuracy insurance commissioner errors may have been included. Yours sincerely, Dr Ranjan Stanley MD, [facility] - Urology Providers of Expert, Compassionate Care for the Genitourinary System Telehealth Telehealth Location of provider rendering services: practice address Location of patient: address on file Patient Identification confirmed using: Name, : Yes Telehealth method: voice only Patient verbally consented to treatment: Yes Patient verbally consented to billing insurance company: Yes Patient informed of any privacy concerns related to visit: Yes Coding Level of Care Code Tele Est Pt Level 3 (71570) Diagnoses Prostate cancer C61
== END 2023-10-23 13:52 | disposition home or self-care (01) ==
LOC: HO.HUSH 13:05
PROVIDERS: PCP Physician Assistant; Visit Provider Urology
DX: C61 Malignant neoplasm of prostate (principal)
CPT/HCPCS: 99442

== ENCOUNTER → 2023-10-23 13:05 | Outpatient (BNVA) | payer MEDICARE, SELFPAY | PROVIDERS: PCP Physician Assistant; Visit Provider Urology ==

== ENCOUNTER 2023-11-28 08:11 | Outpatient (REF) | payer MEDICARE, SELFPAY ==
[2023-12-05 12:08] LABS: Testosterone, Total 5 ng/dL (250-1100)
== END 2023-11-28 08:12 | disposition home or self-care (01) ==
LOC: HO.HMGCLDS 08:11
PROVIDERS: PCP Physician Assistant; Visit Provider Urology
DX: C61 Malignant neoplasm of prostate (principal); E11.69 Type 2 diabetes mellitus with other specified complication; N52.1 Erectile dysfunction due to diseases classified elsewhere; Z12.5 Encounter for screening for malignant neoplasm of prostate
CPT/HCPCS: 36415; 84153; 84403

== ENCOUNTER 2023-12-04 11:29 | Outpatient (AMB) | payer MEDICARE, SELFPAY ==
--- NOTE | 2023-12-04 11:33 | A.OFFPC_ITS ---
Vital Signs 12/04/23 11:35 Height 5 ft 7 in Weight 148 lb 0.8 oz BMI 23.2 BP 130/62 Blood Pressure Location Lt brachial Position Sitting Pulse 58 Pulse Source Pulse Oximeter Pulse Oximetry (%) 97 Oxygen Delivery Method Room Air Intake Visit Reasons: 6M. F/U-HTN Enrollment Processor Required: No Allergies No Known Allergies Allergy (Verified 12/04/23 11:45) Medication List - Last Reconciled 12/04/23 by Thierry Monahan PA-C bicalutamide 50 mg PO DAILY 90 days buspirone 5 mg PO TID diclofenac sodium 75 mg PO BID PRN 15 days diclofenac sodium 1% 2 grams topical QID 30 days donepezil (Aricept) 10 mg PO DAILY 90 days lisinopril 10 mg PO DAILY lovastatin 40 mg PO DAILY meclizine 25 mg PO DAILY PRN melatonin 6 mg (2 x 3 mg) PO BEDTIME 30 days mirtazapine 7.5 mg PO BEDTIME omega-3 fatty acids (Fish Oil Concentrate) 1,000 mg PO DAILY Tobacco use date assessed: 12/04/23 Fall risk assessment: No Falls in past year Last assessed Fall Risk: 12/04/23 HPI 6M. F/U-HTN HPI Details .Patient is an 83-year-old male here today for a? follow-up visit.?Patient's past medical history significant hyperlipidemia, generalized anxiety disorder, prostate cancer, hypertension, progressive dementia. . .. Prostate cancer:? Is followed by urologist in is getting Lupron injections.? Has recently gotten DEXA screening due to being hormone therapy.? His recent PSA has drastically decreased with the addition of bicalutamide recently started on finasteride 5 mg Most recent PSA stable. .. Progressive dementia:? Does seem patient's memory continues to progress slowly.? Presents today with his who handles all affairs. Mickey seems to take good care of him. ? He has been?seen by Neurology in the past .? He takes Aricept daily and significant other does reported has helped him maintain his memory. ?CT of his brain in 2017 showing chronic small-vessel ischemic changes Has followed up with Neurology whom recommend CT brain with IV contrast to evaluate for focal lesions. .. Hypertension:? Blood pressure acceptable today in office, patient denies any chest discomfort, palpitations or shortness of breath. knee osteoarthritis:? Currently using a cane to help reductions falls.? Seldomly uses anti arthritis medication. His needs to cue him on taking medication. PLAN:? Try lidocaine roll-on topical treatment for his knee pain. Laboratory Tests 08/12/23 11/28/23 08:03 08:28 Prostate Specific Ag 4.57 H 2.50 [facility] Medical History (Updated 12/04/23 @ 12:50 by Thierry Monahan PA-C) Malignant neoplasm prostate Alzheimer's dementia Prostate cancer Acid reflux Primary osteoarthritis of left knee Prostate cancer Elevated PSA Tendinitis of right rotator cuff Rotator cuff tear Rotator cuff tear arthropathy of right shoulder Surgical History Hx of release of tendon H/O hand surgery History of tonsillectomy Family History Father Liver cancer Mother Heart disease Brother Healthy adult male Social History Household Members: Spouse Caregiver staying overnight: Yes Housing: House Alcohol intake: never Comment: seldom Patient Tobacco Use Status: Never used Tobacco e-Cigarette/Vaping Use: Never Used Second Hand Smoke Exposure: No service: No Current occupational status: retired Cognitive needs: Yes (cane) Hearing needs: No Vision needs: No Questionnaire PHQ-9 Over the last 2 weeks, how often have you been bothered by any of the following problems? 1. Little interest or pleasure in doing things: not at all 2. Feeling down, depressed, or hopeless: several days 3. Trouble falling or staying asleep, or sleeping too much: not at all 4. Feeling tired or having little energy: not at all 5. Poor appetite or overeating: not at all 6. Feeling bad about yourself - or that you are a failure or have let yourself or your family down: not at all 7. Trouble concentrating on things, such as reading the newspaper or watching television: not at all 8. Moving or speaking so slowly that other people could have noticed. Or the opposite - being so fidgety or restless that you have been moving around a lot more than usual: not at all 9. Thoughts that you would be better off or of hurting yourself in some way: not at all Total score: 1 Depression Screening Interpretation: Negative Depression Screening Done: Yes 88529 - PHQ-9 Billing: Yes Source: Developed by Drs. Brandon Caldwell, Raul Hooker and colleagues, with an educational zaida from [employer]. Thrive Questionnaire Date Thrive assessed: 05/15/23 AUDIT C Alcohol Use Questionnaire (AUDIT-C) 1. How often do you have a drink containing alcohol?: Never Total Score: 0 CAMILLA-7 AMB Questionnaire CAMILLA-7 Date CAMILLA - 7 assessed: 12/04/23 Feeling nervous, anxious, or on edge: 0 = Not at all Not being able to stop or control worryin = Not at all Worrying too much about different things: 0 = Not at all Trouble relaxin = Not at all Being so restless that it is hard to sit still: 0 = Not at all Becoming easily annoyed or irritable: 0 = Not at all Feeling afraid as if something awful might happen: 0 = Not at all Total CAMILLA-7 score (0-4 normal; 5-9 mild; 10-14 moderate; 15-21 severe): 0 Source: Developed by Drs. Brandon Caldwell, Mary Rush, Raul Elizondo and colleagues, with an educational zaida from [employer]. CAMILLA-7 Assessment Billing CAMILLA-7 Assessment Tool: CAMILLA-7 Assessment 87602 Review of Systems Const Denies headache(s) Eyes Denies loss of vision ENT Denies vertigo, Denies dizziness, Denies headache(s) and Denies sore throat Card Denies chest pain, Denies leg edema and Denies lightheadedness Resp Denies cough, Denies hemoptysis and Denies wheezing GI Denies abdominal pain, Denies melena, Denies constipation, Denies diarrhea and Denies vomiting Denies dysuria, Denies urinary frequency and Denies urinary urgency Musc Details: + knee pain Reports arthralgias, Denies joint swelling, Denies numbness and Denies tingling Neuro Denies Abnormal speech present, Reports behavioral changes, Denies vertigo, Denies dizziness, Denies headache(s), Denies loss of vision, Reports memory loss, Denies numbness and Denies tingling Psych Denies anxiety, Reports behavioral changes, Denies depression, Reports memory loss and Denies panic attacks Graeme/Lymph Denies easy bleeding and Denies easy bruising Aller/Immun Denies wheezing Physical exam (Primary Care) Vital Signs: Last Vital Signs Pulse 58 12/04/23 11:35 BP 130/62 12/04/23 11:35 Pulse Ox 97 12/04/23 11:35 Oxygen Delivery Method Room Air 12/04/23 11:35 BMI result Body Mass Index 23.2 Tobacco/Smoking Status: Tobacco use Status Tobacco use date assessed 12/04/23 12/04/23 11:37 Patient Tobacco Use Status Never used Tobacco 12/04/23 11:37 e-Cigarette/Vaping Use Never Used 12/04/23 11:37 PHQ-9: PHQ-9 Score PHQ-9: Total score 1 12/04/23 11:48 Depression Screening Interpretation: Negative Thrive Assessment: Date of Thrive Assessment Date Thrive assessed 05/15/23 12/04/23 11:37 Const General: healthy appearing, no acute distress, alert and awake Nutritional Appearance: well nourished Orientation/consciousness: oriented to person, oriented to place and oriented to time HENMT Ears: TM's normal bilaterally General nose exam: Normal nasal mucous membranes and turbinates present Eyes Conjunctivae: conjunctivae normal Sclerae: sclerae normal Pupils: Equal, round and reactive pupils present Neck Neck: Yes no lymphadenopathy and Yes no JVD Thyroid: Thyroid normal Carotids: no bruits Resp Effort & Inspection: normal respiratory effort and not tachypneic Auscultation: no crackles, no rales, no rhonchi and no wheezes Cardio Rate: regular rate Rhythm: regular rhythm Heart sounds: no murmurs and normal S1 and S2 GI Palpation (GI): Soft to palpation, nontender, no hepatomegaly and no splenomegaly Auscultation: normal bowel sounds Skin General skin exam: no rashes or lesions noted and dry skin Neuro General: oriented to person, oriented to place and oriented to time Cranial nerves: Yes Equal, round and reactive pupils present Speech: No Abnormal speech present Gait exam (Neuro): Normal gait present Motor exam (neuro): no tremor noted Extrem Right upper extremity: full ROM Left upper extremity: full ROM Right lower extremity: full ROM; no edema Left lower extremity: full ROM; no edema Psych Mental Status: mental status grossly normal Speech and movement: Normal speech and movement present Affect: normal affect Attitude: cooperative Thought process: Normal thought process present Assessment and Plan Assessment & Plan (1) HTN (hypertension): Code(s): I10 - Essential (primary) hypertension Qualifiers: Hypertension type: essential hypertension Qualified Code(s): I10 - Essential (primary) hypertension Plan: Patient's blood pressure acceptable today in office. Goal blood pressure remain below 140/90 (2) Alzheimer's dementia: Comment: moderate to severe Code(s): G30.9 - Alzheimer's disease, unspecified; F02.80 - Dementia in other diseases classified elsewhere, unspecified severity, without behavioral disturbance, psychotic disturbance, mood disturbance, and anxiety Qualifiers: Alzheimer's disease onset: late onset Dementia severity: moderate Dementia behavioral or psychological symptom: with agitation Qualified Code(s): G30.1 - Alzheimer's disease with late onset; F02.B11 - Dementia in other diseases classified elsewhere, moderate, with agitation Plan: Mickey continues to have progressing Alzheimer's dementia . He has lip support by his loving. He is oriented to time and person though not place. Now seeing neurology recommend CT of head to rule out any focal neurological findings. Has tried mirtazapine for sleep though had side effect. Continues to use melatonin a p.r.n. basis for sleep. Clock drawing test today in office he was not able to perform. In 2019 able to draw clock with all numbers though not able to put long and short hand. Continues on Aricept. (3) Prostate cancer: Comment: Intermittent hormone therapy Code(s): C61 - Malignant neoplasm of prostate Plan: Continues to follow Urology and continues to be treated for prostate cancer with hormonal injections. PSA much improved since starting new medication bicalutamide. (4) HLD (hyperlipidemia): Code(s): E78.5 - Hyperlipidemia, unspecified Qualifiers: Hyperlipidemia type: pure hypertriglyceridemia Qualified Code(s): E78.1 - Pure hyperglyceridemia Plan: Continues on statin therapy without any side effect. Most recent lipid panel showing excellent control of his total cholesterol and LDL. Goal LDL to remain below 130 (5) CAMILLA (generalized anxiety disorder): Code(s): F41.1 - Generalized anxiety disorder Plan: Patient seems to still suffer from anxiety to which he does continue on BuSpar 5 mg t.i.d.. Needs constant cuing to take his medications from his . (6) Osteoarthritis: Code(s): M19.90 - Unspecified osteoarthritis, unspecified site Qualifiers: Osteoarthritis location: knee Osteoarthritis type: primary Laterality: left Qualified Code(s): M17.12 - Unilateral primary osteoarthritis, left knee Plan: Has bilateral osteoarthritis of knees. Continues to use diclofenac though has not been helpful. Advised on role on lidocaine. Offered orthopedic referral for possible cortisone injection though family considering. Orders: Orders Microalbumin, Random (w Creat) Today I10 - Essential (primary) hypertension Lipid Panel Today E78.1 - Pure hyperglyceridemia Comprehensive [place]. Panel Fast Today I10 - Essential (primary) hypertension Complete Blood Count no Diff Today I10 - Essential (primary) hypertension Medications: Changed From lisinopril 10 mg PO DAILY 90 tabs 0RF I10 - Essential (primary) hypertension To lisinopril 10 mg PO DAILY 90 days 90 tabs 1RF I10 - Essential (primary) hypertension Refilled buspirone 5 mg PO TID 90 tabs 6RF Discontinued mirtazapine Discontinued Reason: Doctor's Order 7.5 mg PO BEDTIME 30 tabs 6RF Coding Level of Care Code Est Pt Level 4 (73249) Diagnoses Essential hypertension I10 Hypertension type: essential hypertension Moderate late onset Alzheimer's dementia with agitation G30.1; F02.B11 Alzheimer's disease onset: late onset Dementia severity: moderate Dementia behavioral or psychological symptom: with agitation Prostate cancer C61 Pure hypertriglyceridemia E78.1 Hyperlipidemia type: pure hypertriglyceridemia CAMILLA (generalized anxiety disorder) F41.1 Primary osteoarthritis of left knee M17.12 Osteoarthritis location: knee Osteoarthritis type: primary Laterality: left Additional Codes CAMILLA-7 Assessment Billing - CAMILLA-7 Assessment Tool: CAMILLA-7 Assessment 50358 ([id number])
[2023-12-04 11:35] VITALS: BP 130/62; PULSE 58; O2SAT 97; BMI 23.2
== END 2023-12-04 12:07 | disposition home or self-care (01) ==
PROVIDERS: PCP Physician Assistant; Visit Provider Physician Assistant
DX: I10 Essential (primary) hypertension (principal); G30.1 Alzheimer's disease with late onset; F02.B11 Dementia in other diseases classified elsewhere, moderate, with agitation; C61 Malignant neoplasm of prostate; E78.1 Pure hyperglyceridemia; F41.1 Generalized anxiety disorder; M17.12 Unilateral primary osteoarthritis, left knee
CPT/HCPCS: 99214

== ENCOUNTER 2023-12-11 12:31 | Outpatient (REF) | payer MEDICARE, SELFPAY ==
--- NOTE | ~2023-12-11 | CT_ITS ---
EXAMINATION: CT head/brain wo IV con CLINICAL INFORMATION: Reason for Exam ALZHEIMER DISEASE COMPARISON: CT head without contrast 04/02/2017 TECHNIQUE: Contiguous axial imaging was performed from the skull base to vertex without intravenous contrast. Sagittal and coronal reformatted images were obtained. This CT examination was performed using dose optimization techniques as appropriate, variously including the following: * Automated exposure control * Adjustment of mA and/or kV according to patient size (this includes techniques or standardized protocols for targeted exams where dose is matched to indication/reason for exam; i.e. extremities or head) Use of iterative reconstruction technique DLP: 799.72 mGy-cm FINDINGS: No acute osseous or soft tissue abnormality. The mastoid air cells and visualized portions of the paranasal sinuses are well aerated. There is no evidence of acute intracranial hemorrhage or territorial infarction. No abnormal mass effect or midline shift is seen. Meyers to white matter differentiation is well preserved. No extra-axial fluid collections are identified. Compared to CT from 2017, there is progressive mild cerebral volume loss with commensurate ex vacuo dilatation of the ventricular system. There is some disproportionate volume loss in the left temporal lobe and possibly also involving the bilateral parietal lobes the seen in the setting of Alzheimer's disease. Patchy periventricular and deep white matter hypoattenuation is consistent with mild small vessel ischemic changes. CT/CT head/brain wo IV con IMPRESSION: 1. No acute intracranial abnormality 2. Compared to CT from 2017, there is progressive mild cerebral volume loss with disproportionate involvement of the left temporal lobe and possibly also the bilateral parietal lobes which can be seen in the setting of Alzheimer's disease. 3. Mild chronic microangiopathy
== END 2023-12-11 12:32 | disposition home or self-care (01) ==
LOC: HO.CT 12:31
PROVIDERS: PCP Physician Assistant; Visit Provider Psychiatry & Neurology Neurology
DX: G30.9 Alzheimer's disease, unspecified (principal); F02.80 Dementia in other diseases classified elsewhere, unspecified severity, without behavioral disturbance, psychotic disturbance, mood disturbance, and anxiety
CPT/HCPCS: 70450

== ENCOUNTER 2023-12-18 09:09 | Outpatient (AMB) | payer MEDICARE, SELFPAY ==
--- NOTE | 2023-12-18 09:27 | A.OFFVIS_ITS ---
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 Required: No Accompanied by: Self / Same As Patient Allergies No Known Allergies Allergy (Verified 12/04/23 11:45) Medication List - Last Reconciled 12/18/23 by Ranjan Stanley MD bicalutamide 50 mg PO DAILY 90 days buspirone 5 mg PO TID diclofenac sodium 1% 2 grams topical QID 30 days diclofenac sodium 75 mg PO BID PRN 15 days donepezil (Aricept) 10 mg PO DAILY 90 days lisinopril 10 mg PO DAILY 90 days lovastatin 40 mg PO DAILY meclizine 25 mg PO DAILY PRN melatonin 6 mg (2 x 3 mg) PO BEDTIME 30 days omega-3 fatty acids (Fish Oil Concentrate) 1,000 mg PO DAILY HPI HPI Comments History of Present Illness Details Mickey is pleasant male. He is a patient of Dr. Monahan. He seen for the following urologic conditions - prostate cancer - osteoporosis Tolerating current therapy PSA stable 12/18 PSA 2.5 T 5 GnRH/Prolia administered today Plan prostate MRI for targeted cryotherapy prior to next visit 10/17 PSA 2.8 PET/CT There is intense abnormal PSMA activity in the right posterolateral aspect of the mid to inferior aspect of the prostate gland 08/17 Rising PSA despite appropriate horm one shot stop bicalutamide - repeat PSA in 4 weeks - T 50 05/17 Here for repeat GnRH and Prolia 02/14 added bicalutamide Prostate cancer - Last GnRH 11/[address] 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 DEXA scan 10/15 osteoporosis [facility] Medical History (Updated 12/04/23 @ 12:50 by Thierry Monahan PA-C) Malignant neoplasm prostate Alzheimer's dementia Prostate cancer Acid reflux Primary osteoarthritis of left knee Prostate cancer Elevated PSA Tendinitis of right rotator cuff Rotator cuff tear Rotator cuff tear arthropathy of right shoulder Surgical History Hx of release of tendon H/O hand surgery History of tonsillectomy Family History Father Liver cancer Mother Heart disease Brother Healthy adult male Social History Household Members: Spouse Caregiver staying overnight: Yes Housing: House Alcohol intake: never Comment: seldom Patient Tobacco Use Status: Never used Tobacco e-Cigarette/Vaping Use: Never Used Second Hand Smoke Exposure: No service: No Current occupational status: retired Cognitive needs: Yes (cane) Hearing needs: No Vision needs: No Review of Systems Const Denies chills and Denies fever(s) Card Reports no additional complaints and Denies syncope Resp Denies cough GI Denies abdominal pain and Denies heartburn Reports as per HPI and Denies change in libido Neuro Denies syncope Psych Denies change in libido Endo Denies change in libido Physical Exam Const General: cooperative, healthy appearing, comfortable and no acute distress Orientation/consciousness: patient oriented x3 HEENT Face and sinus: Yes normal facial exam Mouth: moist mucous membranes Neck Neck: Yes normal visual inspection, Yes full ROM and Yes trachea midline Chest Chest palpation & inspection: normal inspection of the chest Resp Effort & Inspection: normal respiratory effort, able to speak in complete sentences and no respiratory distress GI Inspection: Yes normal to inspection Back/Spine/Pelvis Cervical Spine: normal cervical lordosis Thoracic/Lumbar Spine: thoracic and lumbar spine normal to inspection Skin General skin exam: no rashes or lesions noted Neuro General: patient oriented x3, gait normal, tone normal and moves all extremities Extrem General: Yes normal to inspection and Yes capillary refill normal Office Meds Prolia 60 mg/mL subcutaneous syringe Performing Provider: Ranjan Stanley MD Performing Location: [facility] Administered by: Loulou Payne RN on 12/18/23 09:37 Dose Route Admin Location Dispensed Lot Number Expiration Date [place] Juvenile Detention Officer 60 mg subcut left arm 1 mL [id number] 01/22/26 28953-123-57 [employer] Eligard (6 month) 45 mg (6 month) subcutaneous syringe Performing Provider: Ranjan Stanley MD Performing Location: [facility] Administered by: Loulou Payne RN on 12/18/23 09:37 Dose Route Admin Location Dispensed Lot Number Expiration Date NDC Juvenile Detention Officer 45 mg subcut right arm 45 mg [id number] 11/25/24 38316-372-06 [employer]. Assessment & Plan Assessment & Plan (1) Rising PSA following treatment for malignant neoplasm of prostate: Code(s): R97.21 - Rising PSA following treatment for malignant neoplasm of prostate (2) Prostate cancer: Comment: Intermittent hormone therapy Code(s): C61 - Malignant neoplasm of prostate Plan Plan prostate MRI, three-month lab work Orders: Orders AMB Leuprolide Injection - Practice Supplied Today C61 - Malignant neoplasm of prostate AMB Denosumab Injection Practice Supplied Today C61 - Malignant neoplasm of prostate, M81.0 - Age-related osteoporosis without current pathological fracture Testosterone, Total 3 Months C61 - Malignant neoplasm of prostate Prostate Specific Antigen 3 Months C61 - Malignant neoplasm of prostate MR pelvis wo/w con 3 Months C61 - Malignant neoplasm of prostate Patient Instructions: Imaging studies, laboratory and physical exam results were discussed and reviewed in detail. No major barriers to patient understanding were identified. An opportunity to ask questions regarding the treatment plan was provided. All questions were answered. The patient expressed understanding and agreement with the above treatment plan. The patient is aware they should contact our office by phone for worsening of their current condition or the appearance of new urologic symptoms. Compliance is encouraged with any medications and followup testing that is ordered. It is a privilege to participate in the urologic care of your patient. If you have any questions or concerns regarding treatment for the above conditions, or other urologic issues, please do not hesitate to contact me. The office telephone contact is [phone]. This note is constructed using voice recognition software. While every effort has been made to ensure accuracy it security project manager errors may have been included. Yours sincerely, Dr Ranjan Stanley MD, [facility] - Urology Providers of Expert, Compassionate Care for the Genitourinary System Coding Level of Care Code Est Pt Level 4 (94940) Diagnoses Rising PSA following treatment for malignant neoplasm of prostate R97.21 Prostate cancer C61
== END 2023-12-18 09:49 | disposition home or self-care (01) ==
PROVIDERS: PCP Physician Assistant; Visit Provider Urology
DX: R97.21 Rising PSA following treatment for malignant neoplasm of prostate (principal); C61 Malignant neoplasm of prostate; M81.0 Age-related osteoporosis without current pathological fracture
CPT/HCPCS: 99214

== ENCOUNTER → 2023-12-18 09:09 | Outpatient (BNVA) | payer MEDICARE, SELFPAY | PROVIDERS: PCP Physician Assistant; Visit Provider Urology | DX: R97.21 Rising PSA following treatment for malignant neoplasm of prostate (principal); C61 Malignant neoplasm of prostate | CPT/HCPCS: 96372; 96402; 99212; J0897; J9217 ==

== ENCOUNTER → 2024-02-27 11:00 | Outpatient (BNVA) | payer MEDICARE, SELFPAY | PROVIDERS: PCP Physician Assistant; Visit Provider Psychiatry & Neurology Neurology ==

== ENCOUNTER 2024-04-11 09:11 | Outpatient (AMB) | payer MEDICARE, SELFPAY ==
[2024-04-11 09:25] VITALS: BP 110/70; PULSE 50; TEMP 36.6; O2SAT 100; BMI 24.0
--- NOTE | 2024-04-11 09:25 | MHC.OFFWIV ---
Intake Vital Signs 04/11/24 09:25 Height 5 ft 7 in Weight 153 lb BMI 24.0 BP 110/70 Blood Pressure Location Rt brachial Position Sitting Pulse 50 Pulse Source Pulse Oximeter Temp 97.8 F Temp Source Oral Pulse Oximetry (%) 100 Oxygen Delivery Method Room Air Intake Visit Reasons: EP Lft foot infection Intake Note: Pt is here today c/o Lt foot infection Patient Tobacco Use Status: Never used Tobacco Allergies No Known Allergies Allergy (Verified 04/11/24 11:27) HPI EP Lft foot infection HPI Details Patient is an 83-year-old male comes to the walk-in clinic with family member who is an employee of the hospital, complaining of possible infection to the left leg. Apparently VNA services had been set up to assist the patient, as he has advanced dementia and is still at home with his , and they wanted to evaluate him for elder Care Services. VNA was concerned about his leg as he had been complaining of pain especially to the left lower dun[place] area, and they advised that he go to the emergency department for evaluation. Per family, patient not able to communicate much, and is difficult to obtain history from, but has not appear to be in any distress different than his baseline per family. No report of cough, shortness of breath, weakness or dizziness, chest pain, difficulty walking more than baseline, which is usually with a cane. He is a patient of Agustin Monahan here at [facility]. He also sees neurology, and recently had medication change back to memantine for his dementia, which had been worsening as he was becoming aggressive. No history of pedal edema, or vascular issues reported [facility] Medical History Malignant neoplasm prostate Alzheimer's dementia Prostate cancer Acid reflux Primary osteoarthritis of left knee Prostate cancer Elevated PSA Tendinitis of right rotator cuff Rotator cuff tear Rotator cuff tear arthropathy of right shoulder Surgical History Hx of release of tendon H/O hand surgery History of tonsillectomy Family History Father Liver cancer Mother Heart disease Brother Healthy adult male Social History Household Members: Spouse Housing: House Alcohol intake: former Comment: seldom Patient Tobacco Use Status: Never used Tobacco Smoked in Last 30 Days: No e-Cigarette/Vaping Use: Never Used Second Hand Smoke Exposure: No Use of substances other than those prescribed or required for medical reasons: No Advance Directives: No Advance Directives Information Provided: Yes service: No Current occupational status: retired Cognitive needs: Yes (cane) Hearing needs: No Vision needs: No Review of Systems Const All systems reviewed & are unremarkable except as noted in HPI and below Neuro Reports confusion Psych Reports confusion Physical Exam Vital Signs: Last Vital Signs Temp 97.8 F 04/11/24 09:25 Pulse 50 04/11/24 09:25 BP 110/70 04/11/24 09:25 Pulse Ox 100 04/11/24 09:25 Oxygen Delivery Method Room Air 04/11/24 09:25 BMI result Body Mass Index 24.0 Const General: cooperative, comfortable, no acute distress, alert, awake, Physically active, confusion and well groomed; No anxious, diaphoretic, ill appearing, intoxicated appearing, poor hygiene or tired appearing Nutritional Appearance: average body habitus Orientation/consciousness: confusion Limitations: ambulation with cane (At baseline, but was being helped by family today) Resp Effort & Inspection: normal respiratory effort, able to speak in complete sentences, no audible wheezes, no cough, no grunting, not labored, no nasal flaring, no retractions and symmetric chest movement Auscultation: clear to auscultation bilaterally, no crackles, no rales, no rhonchi, no wheezes, lung sounds not diminished and No rub present Cardio Jugular venous distension: no JVD Rate: bradycardic Rhythm: regular rhythm Skin Other: 4+ pitting edema to the mid tibias bilaterally, weeping lesions to the left medial aspect of lower leg, and a few superficial abrasions. Intact pedal pulses bilaterally Lesions: lesion noted Neuro General: confusion Psych Appearance: grossly normal Attitude: cooperative Thought process: Other thought process findings present (Advanced dementia) Insight: Poor insight present (Psych) Judgement: Poor judgement present (Psych) Assessment & Plan Assessment & Plan (1) Pedal edema: Code(s): R60.0 - Localized edema Plan: Patient is an 83-year-old male with advanced dementia who is a poor historian, and unreliable to give feedback. Comes to the walk-in with family member who is an employee of [employer] [facility], and gives report that patient had been in good health up until being evaluated by VNA recently for elder Services and was found to have pedal edema, and advised to go to the emergency department. They brought him to the walk-in to be evaluated for what they thought was possible cellulitis, however patient is found to have acute pedal edema to the bilateral lower extremities, and almost up to the knees. They report patient recently had been changed back to memantine for his dementia, as other medication was causing agitation side effects. This might have been the underlying cause of edema, and so we discussed how he might benefit from being taken off the medication, however it is also possible that he has developed heart failure or has another etiology for the acute pedal edema. His heart rate is bradycardic today, which is not the norm for him per chart review, and he has a first-degree heart block. And while the lung sounds are clear and he is not coughing or showing any work of breathing, his ambulation is slow and he has a shuffling ataxic gait, and it is difficult to assess if he has underlying fatigue or weakness due to his almost nonverbal state. Therefore I did advise to family member that I felt it safest for him to be evaluated at [facility] Emergency [facility], where they could evaluate him further and determine if he should be diuresed inpatient. Family member was amenable to this, and brought him to the emergency department. Expect was called in. Orders: Orders Complete Blood Count Man Dif Today R60.9 - Edema, unspecified PSA,Total (Free>4and<10) Today R60.9 - Edema, unspecified Comprehensive Met. Panel Today R60.9 - Edema, unspecified B Type Natriuretic Peptide Today R60.9 - Edema, unspecified Coding Level of Care Code Est Pt Level 4 (58762) Diagnoses Pedal edema R60.0
== END 2024-04-11 11:15 | disposition home or self-care (01) ==
PROVIDERS: PCP Physician Assistant; Visit Provider Physician Assistant Medical
DX: R60.0 Localized edema (principal)
CPT/HCPCS: 99051; 99214

== ENCOUNTER 2024-04-11 10:25 | Outpatient (REF) | payer MEDICARE, SELFPAY ==
[2024-04-11 11:28] LABS: Baso%MD 0.5 %; Eos%MD 2.5 %; Hematocrit 33.4 % (42.0-52.0); Hemoglobin 10.6 g/dl (14.0-18.0); IG%MD 0.2 %; Mean Corpuscular HGB Conc 31.7 g/dl (31.0-36.0); Mean Corpuscular Hemoglobin 27.2 pg (27.0-33.0); Mean Corpuscular Volume 85.6 fL (80.0-98.0); Mean Platelet Volume 10.6 fL (9.4-12.4); Neut%MD 73.8 %; Platelet Count 241 X10*3/uL (160-400); Red Cell Distribution Width 16.2 % (11.0-16.0); White Blood Count 6.5 X10*3/uL (4.8-10.8)
[2024-04-11 12:01] LABS: Band Neutrophils Percent 2 % (3-5); Eosinophils Absolute Manual 0.1 X10*3/uL (0.0-0.4); Eosinophils Percent Manual 1 % (0-4); Lymphocytes Absolute Manual 1.2 X10*3/uL (1.2-4.9); Lymphocytes Percent Manual 18 % (20-40)
[2024-04-11 12:03] LABS: B Type Natriuretic Peptide 129 pg/mL (<100)
[2024-04-11 12:04] LABS: Ovalocytes 1+ (5-14) /OIF; RBC Morphology NOTED
[2024-04-11 12:05] LABS: Large Platelet PRESENT; Platelet Estimate NORMAL (NORMAL); Platelet Morphology Comment NOTED
[2024-04-11 12:06] LABS: Monocytes Absolute Manual 0.3 X10*3/uL (0.1-1.2); Monocytes Percent Manual 4 % (2-11); Neutrophils Percent Manual 75 % (45-73)
[2024-04-11 12:22] LABS: PSA,Total (Free>4and<10) 1.89 ng/mL (0.00-4.00); Prostate Specific Antigen 1.92 ng/mL (<0.05-4.0)
[2024-04-11 12:28] LABS: Alanine Aminotransferase 24 U/L (0-40); Albumin Level 4.1 g/dL (3.5-5.0); Alkaline Phosphatase 148 U/L (39-117); Anion Gap 15 (12-20); Aspartate Amino Transferase 29 U/L (5-37); Bilirubin Total 0.4 mg/dL (0.0-1.0); Blood Urea Nitrogen 17 mg/dL (9-16); Calcium 8.8 mg/dL (8.4-10.2); Carbon Dioxide 26 mmol/L (22-29); Chloride 104 mmol/L (96-108); Estimated Glomerular Filt Rate > 60; Glucose Random 93 mg/dL (60-115); Sodium 141 mmol/L (135-145); Total Protein 7.3 g/dL (6.5-8.0)
[2024-04-19 13:58] LABS: Testosterone, Total 5 ng/dL (250-1100)
== END 2024-04-11 10:26 | disposition home or self-care (01) ==
LOC: HO.HMGCLDS 10:25
PROVIDERS: Urology; PCP Physician Assistant; Visit Provider Physician Assistant Medical
DX: Z13.89 Encounter for screening for other disorder (principal)
CPT/HCPCS: 36415; 80053; 83880; 84153; 84403; 85007; 85027

== ENCOUNTER 2024-04-11 11:22 | Inpatient (IN) | payer MEDICARE, SELFPAY ==
[2024-04-11] VITALS (7 sets, daily range): BP systolic 124–162; BP diastolic 65–95; PULSE 57–76; RESP 12–18; TEMP 36.4–36.8; O2SAT 95–97; BMI 24.9
--- NOTE | ~2024-04-11 | US_ITS ---
EXAMINATION: US VENOUS ULTRASOUND WITH DOPPLER LOWER EXTREMITY, BILATERAL CLINICAL INFORMATION: Lower extremity swelling COMPARISON: Ultrasound venous Doppler lower extremity left from 09/18/2027 TECHNIQUE: Ultrasound of the deep veins is performed from the hip to the calf with compression sonography and color and pulse Doppler assessment. Spectral analysis with color-flow imaging is performed. FINDINGS: RIGHT: There is normal venous compression and respiratory variation and augmented flow. The visualized common femoral vein, superficial femoral vein, profunda femoral vein, popliteal vein, and the trifurcation region shows no evidence of deep venous thrombosis. There is no significant popliteal fossa cyst. Soft tissue edema overlying the right calf. LEFT: There is normal venous compression and respiratory variation and augmented flow. The visualized common femoral vein, superficial femoral vein, profunda femoral vein, popliteal vein, and the trifurcation region shows no evidence of deep venous thrombosis. There is no significant popliteal fossa cyst. Left greater saphenous vein is not well visualized. If the patient's symptoms persist, followup ultrasound in 5 days 7 days might be of value to exclude proximal propagation from a non-visualized calf vein. US/US venous duplex LE BI IMPRESSION: 1. No DVT demonstrated in the bilateral lower extremity. 2. Soft tissue edema overlying the right calf. 3. Left greater saphenous vein is not well visualized.
--- NOTE | ~2024-04-11 | XR_ITS ---
EXAMINATION: XR CHEST CLINICAL INFORMATION: Lower extremity swelling. COMPARISON: Chest radiograph dated 09/14/2009. TECHNIQUE: Frontal view of the chest was obtained. FINDINGS: Hypoinflation of the lungs. No focal airspace consolidation. No pleural effusion or pneumothorax. Stable cardiomediastinal silhouette. XR/XR chest 1V IMPRESSION: Hypoinflation of the lungs without focal airspace consolidation.
--- NOTE | 2024-04-11 11:24 | ED.GENADULT ---
HPI - General Adult General Chief complaint: General Medical Stated complaint: swollen legs Time Seen by Provider: 04/11/24 11:45 Source: family (Son in law) Mode of arrival: ambulatory Limitations: other (Advanced dementia.) History of Present Illness ED Provider: DR. Melgar HPI narrative: 83-year-old male with advanced dementia brought in by his family for evaluation of bilateral lower extremity swelling left more than right, patient normally is sedentary lifestyle with very limited ambulation at home, usually monitor closely by his family who declined any recent fall or injury to lower extremities. History was obtained from the family at bedside patient is unable to provide any history. Related Data Home Medications ?Medication ?Instructions ?Recorded ?Confirmed diclofenac sodium 1 % topical gel 2 g topical QID PRN Pain 04/11/24 04/11/24 omega 8-toi-daq-fish oil 300 1 cap PO DAILY 04/11/24 04/11/24 mg-1,000 mg capsule,delayed release (Fish Oil) quetiapine 25 mg tablet 25 mg PO BID@1600,2100 04/11/24 04/11/24 Previous Rx's ?Medication ?Instructions ?Recorded melatonin 3 mg capsule 6 mg (2 x 3 mg) PO BEDTIME sleep 08/29/23 30 days #60 caps donepezil 10 mg tablet (Aricept) 10 mg PO DAILY 90 days #90 tabs 10/22/23 buspirone 5 mg tablet 5 mg PO TID #90 tabs 12/04/23 lisinopril 10 mg tablet 10 mg PO DAILY 90 days #90 tabs 12/04/23 diclofenac sodium 75 mg 75 mg PO BID PRN pain 15 days #30 12/09/23 tablet,delayed release tabs lovastatin 40 mg tablet 40 mg PO DAILY #90 tabs 12/09/23 memantine 28 mg capsule 28 mg PO DAILY 30 days #30 ea 01/03/24 sprinkle,extended release 24hr meclizine 25 mg tablet 25 mg PO DAILY PRN for dizziness 02/25/24 #90 tabs Allergies Allergy/AdvReac Type Severity Reaction Status Date / Time No Known Allergies Allergy Verified 04/11/24 11:27 Review of Systems Review of Systems: All other systems are reviewed and are negative Constitutional: Reports as per HPI and Reports no additional constitutional complaints Eyes: Reports as per HPI and Reports no additional eye complaints Reports system reviewed and no additional complaints, except as documented Cardiovascular: Reports as per HPI and Reports no additional cardiovascular complaints Respiratory: Reports as per HPI and Reports no additional respiratory complaints Gastrointestinal: Reports as per HPI and Reports no additional gastrointestinal complaints Genitourinary: Reports no additional female genitourinary complaints Musculoskeletal: Reports no additional musculoskeletal complaints Skin/Breast: Reports system reviewed and no additional complaints, except as docu Psychiatric: Reports no additional psychiatric complaints Endocrine: Reports no additional endocrine complaints Hematologic/Lymphatic: Reports no additional hematologic/lymphatic complaints Allergic/Immunologic: Reports no additional allergic/immunologic complaints Reports system reviewed and no additional complaints, except as documented and Reports Abnormal speech present [facility] Past Medical History Medical History Malignant neoplasm prostate Alzheimer's dementia Prostate cancer Acid reflux Primary osteoarthritis of left knee Prostate cancer Elevated PSA Tendinitis of right rotator cuff Rotator cuff tear Rotator cuff tear arthropathy of right shoulder Surgical History Hx of release of tendon H/O hand surgery History of tonsillectomy Family History Family History Father Liver cancer Mother Heart disease Brother Healthy adult male Social History Social History Household Members: Spouse Housing: House Alcohol intake: former Comment: seldom Patient Tobacco Use Status: Never used Tobacco Smoked in Last 30 Days: No e-Cigarette/Vaping Use: Never Used Second Hand Smoke Exposure: No Use of substances other than those prescribed or required for medical reasons: No Advance Directives: No Advance Directives Information Provided: Yes service: No Current occupational status: retired Cognitive needs: Yes (cane) Hearing needs: No Vision needs: No Physical Exam ED Vital Signs: Vital Signs - 24 hr 04/11/24 11:26 04/11/24 13:26 04/11/24 15:06 Temperature 98 F Pulse Rate 57 57 Respiratory Rate 18 14 Blood Pressure 124/73 162/70 H 155/95 H Pulse Oximetry 96 95 Oxygen Delivery Method Room Air Room Air BMI result Body Mass Index 24.9 Vital signs have been reviewed and appear to be correct. Blood pressure elevated. Heart rate normal. Respiratory rate normal. Temperature normal. Oxygen saturation normal. Appearance: Alert.No acute distress. Head: Normal external exam. Normocephalic. Atraumatic. No Duran signs noted. No raccoon eyes noted Eyes: PERRLA. EOMI. Conjunctiva and sclera normal. Eyelids normal. ENT: TM's Normal. Pharynx normal. Uvula midline. Moist mucous membranes. No trismus noted. No drooling noted. No muffled voice noted. Neck: Normal inspection. Neck supple. FROM. No adenopathy. Thyroid Normal. No meningeal signs. No neck mass noted. CVS: Normal heart rate and rhythm. Heart sound normal. No murmurs noted. Pulses normal throughout. Respiratory: No respiratory distress. Painless inspiration. Breath sounds normal. No wheezes/rales/rhonchi noted. Chest nontender. No accessory muscle usage noted or decreased air movement noted. Abdomen: Soft and nontender. Bowel sounds normal in all 4 quadrants. No distention noted. No organomegaly noted. No visible injury noted. Back: No CVA tenderness. Full range of motion noted. Skin: Skin warm and dry. Normal skin color. Normal skin turgor. No rashes/lesions/lacerations noted. Extremities: Bilateral +2 lower extremity edema. Extremities exhibit normal range of motion. No tenderness, no deformity, no step-off, neurovascularly intact, no redness, no hotness. Neuro: Cranial nerve exam: II-XII are grossly intact No motor deficit. No sensory deficit. Reflexes normal. Course Course Course Narrative: This is a rapid medical exam. deferred additional HPI, ROS, PE to primary provider. 83 yo male with history of dementia, HLD, HTN, anxiety, OA, prostate CA (followed by Jaden) here with bilateral LE swelling/pain L>R. Difficult to obtain HPI d/t history of dementia. Labs sent this morning from (They are pending in the system). Will obtain CXR, viral testing, EKG, venous US SOLOMON Painter APRN Reevaluation(s) Reevaluation #1: Bilateral lower extremity edema will need diuresis which is a concern for his advanced dementia patient at high risk of fall walking to the bathroom during the night for diuresis. Will admit to the hospital for diuresis and William catheter placement. Time: 14:22 Medications Administered Discontinued Medications Generic Name Dose Route Start Last Admin Trade Name Freq PRN Reason Stop Dose Admin Furosemide 40 mg 04/11/24 14:17 04/11/24 15:06 Furosemide 40 Mg/4 Ml Vial IVPUSH 04/11/24 14:18 40 mg ONCE ONE Administration Protocol Medical Decision Making Differential Diagnosis Differential Diagnoses: The differential diagnosis associated with the presentation includes (DVT, venous stasis, CHF, electrolyte derangement, severe anemia.) Admission/Observation Consideration of admission/observation: Escalation of care including admission/observation considered Consult Healthcare Provider Management of the patient was discussed with: Hospitalist (Dr. Corey) Lab Data MDM Lab Attestation statement: I reviewed the patient's lab results. Labs: Lab Results 04/11/24 04/11/24 Range/Units 12:27 13:27 Troponin I High Sens < 2.7 (<3.5-35.0) ng/L Urine Color Yellow Urine Appearance Clear Urine pH 8.5 (5.0-9.0) Ur Specific [place] <= 1.005 (1.005-1.025) Urine Protein Negative (Neg-Trace) mg/dL Urine Glucose (UA) Negative (Negative) mg/dL Urine Ketones Negative (Negative) mg/dL Urine Blood Negative (Negative) Urine Nitrite Negative (Negative) Ur Leukocyte Esterase Negative (Negative) Independent Interpretation I performed an independent interpretation of an: Plain X-Ray (Chest: No acute intrathoracic pathology.) and Ultrasound (Bilateral lower extremity ultrasound:1. No DVT demonstrated in the bilateral lower extremity. 2. Soft tissue edema overlying the right calf. 3. Left greater saphenous vein is not well visualized. ) Radiology Impression Discussion of test interpretation with radiology: I have reviewed the radiologist's reading. Discharge Plan Discharge Clinical Impression: Edema Patient Disposition: Admitted As Inpatient Print Language: Greek
--- NOTE | 2024-04-11 11:28 | ECG_ITS ---
Test Reason : LE swelling Blood Pressure : / mmHG Vent. Rate : 055 BPM Atrial Rate : 055 BPM P-R Int : 194 ms QRS Dur : 090 ms QT Int : 486 ms P-R-T Axes : 028 -03 162 degrees QTc Int : 464 ms Sinus bradycardia Nonspecific T wave abnormality Prolonged QT Abnormal ECG When compared with ECG of 15-APR-2013 13:54, No significant change was found Referred By: Anuradha Heck Electronically Signed By:MICHAEL OLEA MD
[2024-04-11 12:53] LABS: Troponin-I High Sensitivity < 2.7 ng/L (<3.5-35.0)
[2024-04-11 13:36] LABS: Appearance Urine Clear; Color Urine Yellow; Glucose Urine UA Negative (Negative); Leukocyte Esterase Urine Negative (Negative); Nitrite Urine Negative (Negative); PH 8.5 (5.0-9.0); Specific Gravity - Urine <= 1.005 (1.005-1.025); Urine Blood Negative (Negative); Urine Ketones Negative (Negative); Urine Protein Negative (Neg-Trace)
--- NOTE | 2024-04-11 14:55 | PHA.MEDREC ---
Pharmacy Consult ? Medication Reconciliation Pharmacy has completed the medication reconciliation. Called patient's son to confirm meds.
[2024-04-11] MEDS: Furosemide 40 MG/4 ML VIAL IVPUSH (15:06)
--- NOTE | 2024-04-11 15:41 | PC.NURSE ---
pt changed into hospital attire, pt placed on hall monitor, EKG obtained- 20g IV inserted into left wrist. pt medicated per MAR- 16fr perez catheter placed. pt attempting to remove catheter at this time. 1:1 sitter placed for safety
--- NOTE | 2024-04-11 15:57 | P.HPHOSP_ITS ---
History of Present Illness Date of Service: 04/12/24 Chief Complaint: Bilateral lower extremity edema This is an 83-year-old gentleman with past medical history significant for progressive Alzheimer's dementia, hyperlipidemia, generalized anxiety disorder, prostate cancer, hypertension, brought in to [facility] due to bilateral lower extremity edema of few days' duration, due to advanced dementia patient is unable to provide meaningful history most of the history is obtained by patient's son-in-law, patient had no history of shortness of breath, no PND, no orthopnea, no prior history of congestive heart failure patient was recently started on Seroquel for sleep end of January, no recent history of fevers, no chills patient workup in the emergency room showed normal troponin, BNP 129 BSA 1.92 , stable hematocrit, normal kidney function, normal LFTs, and proteins, chest x-ray showed no evidence of pulmonary edema, no pleural effusion EKG showed sinus bradycardia and prolonged QTC patient treated in the emergency room with IV Lasix 40 mg and will be admitted for continued monitoring and treatment and further evaluation of edema. Review of Systems 2 Review of Systems: Unable to obtain detailed review of system due to underlying dementia [facility] Medical History Malignant neoplasm prostate Alzheimer's dementia Prostate cancer Acid reflux Primary osteoarthritis of left knee Prostate cancer Elevated PSA Tendinitis of right rotator cuff Rotator cuff tear Rotator cuff tear arthropathy of right shoulder Family History Father Liver cancer Mother Heart disease Brother Healthy adult male Surgical History Hx of release of tendon H/O hand surgery History of tonsillectomy Social History Household Members: Unknown / Unable to assess Housing: Unknown / Unable to assess Alcohol intake: former Comment: seldom Patient Tobacco Use Status: Never used Tobacco Smoked in Last 30 Days: No e-Cigarette/Vaping Use: Never Used Second Hand Smoke Exposure: No Use of substances other than those prescribed or required for medical reasons: Unknown Currently Displaying Signs/Symptoms of Drug Intoxication Withdrawal: No Advance Directives: No Advance Directives Information Provided: Yes Do you have a plan to hurt others: No Plan service: No Current occupational status: retired Cognitive needs: Yes (cane) Hearing needs: No Vision needs: No Meds Allergies Allergy/AdvReac Type Severity Reaction Status Date / Time No Known Allergies Allergy Verified 04/11/24 11:27 Active Medications: Current Medications Acetaminophen (Acetaminophen 325 Mg Tablet) 650 mg PO Q6H PRN PRN Reason: Pain, Mild (Pain Scale 1-3) Buspirone HCl (Buspirone Hcl 5 Mg Tablet) 5 mg PO TID YONATHAN Donepezil HCl (Donepezil Hcl 10 Mg Tablet) 10 mg PO DAILY [facility] Enoxaparin Sodium (Enoxaparin Sodium 40 Mg/0.4 Ml Syringe) 40 mg SUBCUT Q24H YONATHAN Lisinopril (Lisinopril 10 Mg Tablet) 10 mg PO DAILY YONATHAN; Protocol Magnesium Hydroxide (Milk Of Magnesia 30 Ml Oral.Susp) 30 ml PO DAILY PRN PRN Reason: Constipation Meclizine HCl (Meclizine Hcl 25 Mg Tablet) 25 mg PO DAILY PRN PRN Reason: for dizziness Melatonin (Melatonin 3 Mg Tablet) 6 mg PO BEDTIME [facility] Non-Formulary Medication (Memantine) 28 mg PO DAILY [facility] Ondansetron HCl (Ondansetron Hcl 4 Mg/2 Ml Vial) 4 mg IVPUSH Q8H PRN PRN Reason: Nausea and Vomiting Pravastatin Sodium (Pravastatin Sodium 40 Mg Tablet) 40 mg PO DAILY [facility] Quetiapine Fumarate (Quetiapine Fumarate 25 Mg Tablet) 12.5 mg PO BEDTIME [facility] Sodium Chloride (0.9 % Sodium Chloride Flush 3 Ml Syringe) 3 ml IVFLUSH QSHIFT [facility] Home Medications ?Medication ?Instructions ?Recorded ?Confirmed ?Last Taken ?Type diclofenac sodium 1 % topical gel 2 g topical QID PRN Pain 04/11/24 04/11/24 Unknown History omega 5-upo-cuw-fish oil 300 1 cap PO DAILY 04/11/24 04/11/24 Unknown History mg-1,000 mg capsule,delayed release (Fish Oil) Physical Exam 2 Vital Signs and Narrative: Vital Signs: Last Vital Signs Temp 98 F 04/11/24 11:26 Pulse 57 04/11/24 13:26 Resp 14 04/11/24 13:26 BP 155/95 H 04/11/24 15:06 Pulse Ox 95 04/11/24 13:26 O2 Del Method Room Air 04/11/24 13:26 BMI result Body Mass Index 24.9 Const: Other: General awake, alert, resting comfortably in no acute distress. Anicteric sclera Neck supple no JVD. CVS regular rate rhythm, Respiratory lungs clear to auscultation, no respiratory distress, no wheeze, no rhonchi. Gastrointestinal abdomen soft, nontender, bowel sounds audible, no no guarding , no rigidity. Extremities bilateral pitting edema, no redness, no warmth Neuro moving all 4 extremity, speech clear, repeating questions. Skin no rash Poor insight Results Labs 04/12/24 06:27 Labs: Laboratory Results - last 24 hr 04/11/24 04/11/24 12:27 13:27 Troponin I High Sens < 2.7 Urine Color Yellow Urine Appearance Clear Urine pH 8.5 Ur Specific [place] <= 1.005 Urine Protein Negative Urine Glucose (UA) Negative Urine Ketones Negative Urine Blood Negative Urine Nitrite Negative Ur Leukocyte Esterase Negative Imaging Radiologist's Impressions: Impressions Chest X-Ray 04/11/24 11:59 IMPRESSION: Hypoinflation of the lungs without focal airspace consolidation. Venous Duplex 04/11/24 13:25 IMPRESSION: 1. No DVT demonstrated in the bilateral lower extremity. 2. Soft tissue edema overlying the right calf. 3. Left greater saphenous vein is not well visualized. Assessment and Plan (1) Edema: Status: Acute (2) Alzheimer's dementia: Qualifiers: Alzheimer's disease onset: late onset Dementia behavioral or psychological symptom: with agitation Dementia severity: moderate Qualified Code(s): G30.1 - Alzheimer's disease with late onset; F02.B11 - Dementia in other diseases classified elsewhere, moderate, with agitation Status: Acute (3) HLD (hyperlipidemia): Qualifiers: Hyperlipidemia type: pure hypertriglyceridemia Qualified Code(s): E78.1 - Pure hyperglyceridemia Status: Acute (4) HTN (hypertension): Qualifiers: Hypertension type: essential hypertension Qualified Code(s): I10 - Essential (primary) hypertension Status: Acute Plan 83-year-old gentleman with past medical history significant for progressive Alzheimer's dementia, hyperlipidemia, hypertension, generalized anxiety disorder, prostate cancer presented to [facility] with couple day history of bilateral lower extremity edema with difficulty in ambulation with no associated symptoms of shortness of breath, no PND no orthopnea, noted to have mildly elevated BNP of 129, normal troponin patient be admitted will continued monitoring and treatment. Bilateral lower extremity edema Differential diagnosis include new onset congestive heart failure/? related to Seroquel /bradycardia with prolonged QTC/venous insufficiency Unable to obtain history of PND/orthopnea/shortness of breath due to underlying dementia Noted to have normal protein, LFTs, renal function, chest x-ray unremarkable Follow clinical course/repeat BMP/ i/o /daily weight. Decrease dose of Seroquel to 12.5 mg at bedtime, Seroquel started recently likely due to sleep disturbance If no improvement in symptoms will check echocardiogram/cardiology consult Bradycardia/prolonged QTC Likely due to Aricept , Monitor in telemetry Patient on multiple medications that can prolong QTC including Aricept/Seroquel Wean Seroquel follow clinical course Outpatient follow-up with neurology to discuss continued use of Aricept Hypertension stable BP continue lisinopril Hyperlipidemia placed on Pravachol in place of lovastatin Progressive Alzheimer's dementia Continue home medication Aricept/Namenda Full code Lovenox for DVT prophylaxis In my clinical judgment patient will need to night inpatient hospitalization for treatment of acute onset of bilateral lower extremity edema requiring IV diuretics, and further testing and possible expert consultation, treatment can not be provided in less acute setting Quality Stroke Does the patient have a stroke diagnosis?: No VTE Prior VTE?: No VTE Risk Level:: Medical - moderate - high VTE Device Contraindication: Treatment Not Indicated VTE Drug Contraindication: N/A - Med Ordered
[2024-04-11 16:30] LABS: Creatinine Clr Calc Pharmacy 60.1; Estimated Glomerular Filt Rate > 60
[2024-04-11] MEDS: 0.9 % Sodium Chloride Flush 3 ML SYRINGE IVFLUSH ×2 (17:41→20:06)
[2024-04-11] MEDS: Enoxaparin Sodium 40 MG/0.4 ML SYRINGE SUBCUT (17:42)
[2024-04-11] MEDS: QUEtiapine Fumarate 25 MG TABLET 12.5 MG PO (20:03)
[2024-04-11] MEDS: Acetaminophen 325 MG TABLET 650 MG PO (20:04)
[2024-04-11] MEDS: Melatonin 3 MG TABLET 6 MG PO (20:04)
[2024-04-11] MEDS: busPIRone HCl 5 MG TABLET PO (20:06)
[2024-04-12 02:10] VITALS: BP 136/68; PULSE 58; RESP 16; TEMP 36.7; O2SAT 96
[2024-04-12 02:20] VITALS: BMI 24.2
[2024-04-12 03:32] VITALS: BP 152/70; PULSE 68; RESP 16; TEMP 36.8; O2SAT 98
[2024-04-12 07:11] VITALS: BP 129/74; PULSE 60; RESP 16; TEMP 36.4; O2SAT 96
[2024-04-12 07:15] LABS: Anion Gap 14 (12-20); Blood Urea Nitrogen 21 mg/dL (9-16); Calcium 8.8 mg/dL (8.4-10.2); Carbon Dioxide 27 mmol/L (22-29); Chloride 102 mmol/L (96-108); Creatinine Clr Calc Pharmacy 60.1; Estimated Glomerular Filt Rate > 60; Glucose Random 97 mg/dL (60-115); Potassium 3.3 mmol/L (3.3-5.1); Sodium 140 mmol/L (135-145)
[2024-04-12] MEDS: lisinopriL 10 MG TABLET PO (08:44)
[2024-04-12] MEDS: Donepezil HCl 10 MG TABLET PO (08:44)
[2024-04-12] MEDS: Potassium Chloride ER 20 MEQ TAB.ER.PRT 40 MEQ PO (08:44)
[2024-04-12] MEDS: Pravastatin Sodium 40 MG TABLET PO (08:44)
[2024-04-12] MEDS: busPIRone HCl 5 MG TABLET PO (08:44)
[2024-04-12] MEDS: 0.9 % Sodium Chloride Flush 3 ML SYRINGE IVFLUSH (08:45)
[2024-04-12 10:49] VITALS: BP 142/73; PULSE 69; RESP 16; TEMP 36.4; O2SAT 98
--- NOTE | 2024-04-12 11:24 | MHC.CM.PN ---
IMM 04/12 addressed with pts son-in-law Maximino, copy emailed to him per his request. Pt with dx: Alzheimer's dementia and unable to partake in CM intake assessment. CM intake assessment completed with pts primary contact/son-in-law Maximino. Pt lives at home with his spouse and receives [facility] services (nurse visits 1-2x/week), pt uses a cane. Pts family will transport him home at discharge. Maximino states they have a HCP, copy requested. DCP: return home with family support and resumption of [facility] services. PCP: Thierry MOSELEY
[2024-04-12 12:44] LABS: Magnesium 2.4 mg/dL (1.6-2.6)
--- NOTE | 2024-04-12 14:07 | P.DS_ITS ---
DS: Providers Provider Date of Service: 04/12/24 Date of admission: 04/11/24 15:49 Primary care physician: Thierry Monahan PA-C Consults: 04/11/24 23:53 Consult to Wound Care Routine Reason for consultation: abrasion to LE DS: Diagnosis Discharge Diagnosis (1) Edema: Status: Acute (2) Alzheimer's dementia: Status: Acute (3) HLD (hyperlipidemia): Status: Acute (4) HTN (hypertension): Status: Acute DS: Summary Hospital Course Hospital Course: History of presenting illness: Date of Service: 04/12/24 Chief Complaint: Bilateral lower extremity edema This is an 83-year-old gentleman with past medical history significant for progressive Alzheimer's dementia, hyperlipidemia, generalized anxiety disorder, prostate cancer, hypertension, brought in to [facility] due to bilateral lower extremity edema of few days' duration, due to advanced dementia patient is unable to provide meaningful history most of the history is obtained by patient's son-in-law, patient had no history of shortness of breath, no PND, no orthopnea, no prior history of congestive heart failure patient was recently started on Seroquel for sleep end of January, no recent history of fevers, no chills patient workup in the emergency room showed normal troponin, BNP 129 BSA 1.92 , stable hematocrit, normal kidney function, normal LFTs, and proteins, chest x-ray showed no evidence of pulmonary edema, no pleural effusion EKG showed sinus bradycardia and prolonged QTC patient treated in the emergency room with IV Lasix 40 mg and will be admitted for continued monitoring and treatment and further evaluation of edema. Hospital course: Bilateral lower extremity edema 83-year-old gentleman with past medical history significant for progressive Alzheimer's dementia, hyperlipidemia, hypertension, generalized anxiety disorder, prostate cancer, presented to [facility] with couple day history of bilateral lower extremity edema with difficulty in ambulation with no associated symptoms of shortness of breath, no PND no orthopnea, as per family,unable to obtain history from patient due to advanced dementia ,noted to have mildly elevated BNP of 129, normal troponin admitted to telemetry unit treated with 1 dose of IV Lasix 40 mg , with rapid improvement in lower extremity edema, patient noted to have normal protein, liver enzymes, renal function, venous ultrasound bilateral lower extremity showed no DVT, chest x-ray was unremarkable, clinically does not appear to be in CHF, likely has venous insufficiency exacerbated by recent use of Seroquel, therefore dose of Seroquel reduced to 12.5 mg at HS patient also noted to have prolonged QTC, bradycardia and first-degree AV block, with normal electrolytes, likely due to Aricept in combination with Seroquel, recommended to follow-up with neurology to discuss continued use Aricept , she 2 days no maybe 2 days continuously recommend to use Chavo stockings, keep leg elevated while sitting and follow-up with primary care physician and Neurology. William catheter removed patient voided without difficulty. Hypertension stable BP continue lisinopril Hyperlipidemia continue lovastatin Progressive Alzheimer's dementia Continue home medication Aricept/Namenda and outpatient follow-up with Neurology. Time Attestation Discharge Coordination Time (in mins): 38 Quality: Safe Use of Opioids Does Pt have an Active Cancer Diagnosis on the Problem List?: No Quality: Stroke Does the patient have a stroke diagnosis?: No Physical Exam Vital Signs: Vital Signs: Last Vital Signs Temp 97.6 F 04/12/24 10:49 Pulse 69 04/12/24 10:49 Resp 16 04/12/24 10:49 BP 142/73 H 04/12/24 10:49 Pulse Ox 98 04/12/24 10:49 O2 Del Method Room Air 04/12/24 10:49 BMI result Body Mass Index 24.2 Const: Other: General awake, alert, resting comfortably in no acute distress. Anicteric sclera Neck supple no JVD. CVS regular rate rhythm, Respiratory lungs clear to auscultation, no respiratory distress, no wheeze, no rhonchi. Gastrointestinal abdomen soft, non tender, bowel sounds audible, no guarding , no rigidity. Extremities no redness, no warmth, mild persistent bilateral lower extremity edema. Neuro moving all 4 extremity, speech clear, repeating questions. Skin no rash Poor insight DS: Data Data Completed and Pending Labs on day of discharge: Laboratory Results - last 24 hr 04/11/24 04/12/24 16:14 06:27 Hold Purple Top SEE NOTE Sodium 140 Potassium 3.3 Chloride 102 Carbon Dioxide 27 Anion Gap 14 BUN 21 H Creatinine 0.81 0.81 Estim Creat Clear Calc 60.1 60.1 Estimated GFR > 60 > 60 Random Glucose 97 Calcium 8.8 Magnesium 2.4 Discharge Plan Discharge Anticipated Discharge Date/Time: 04/12/24 14:02 Patient Disposition: Home, Self-Care Discharge Diagnosis: Bilateral lower extremity edema Referrals: Thierry Monahan PA-C [Primary Care Provider] - 1 Week Discharge Medications: Continued melatonin 3 mg capsule 6 mg PO BEDTIME 30 Days Qty: 60 1RF donepezil [Aricept] 10 mg tablet 10 mg PO DAILY 90 Days Qty: 90 1RF lovastatin 40 mg tablet 40 mg PO DAILY Qty: 90 1RF memantine 28 mg capsule,sprinkle,ER 24hr 28 mg PO DAILY 30 Days Qty: 30 6RF meclizine 25 mg tablet 25 mg PO DAILY PRN (Reason: for dizziness) Qty: 90 2RF omega 8-ihb-fwn-fish oil [Fish Oil] 300-1,000 mg Capsule,Delayed Release(Dr/Ec) 1 cap PO DAILY diclofenac sodium 1 % gel 2 g topical QID PRN (Reason: Pain) Rx Instructions: apply to knee buspirone 5 mg tablet 5 mg PO TID Qty: 90 6RF lisinopril 10 mg tablet 10 mg PO DAILY 90 Days Qty: 90 1RF Changed quetiapine 25 mg tablet 12.5 mg PO BEDTIME Qty: 1 0RF No Action diclofenac sodium 75 mg tablet,delayed release (DR/EC) 75 mg PO BID PRN (Reason: pain) 15 Days Qty: 30 0RF Discharge Orders: Discharge Order (Routine); Ordered 04/12/24 Ordered By: Odilia Corey Diet: Advance to usual diet Activity on Discharge: As tolerated Stand Alone Forms: Patient Portal Discharge page Print Language: Jamaican Care Plan Goals: Bilateral lower extremity edema likely venous insufficiency exacerbated by Seroquel, dose of Seroquel reduced to 12.5 mg at bedtime Noted to have bradycardia/prolonged QTC likely due to Aricept, recommend follow- up with Neurology to discuss continued use of Aricept Use Chavo stockings during daytime/keep legs elevated while sitting/avoid sitting long hours Health Concerns: Alzheimer's dementia Plan of Treatment: Follow-up with primary care physician and Neurology call for appointment in 1-2 weeks Assessment: As above Discharge Date/Time: 04/12/24 15:25
--- NOTE | 2024-04-12 15:05 | MHC.CM.PN ---
Pt is medically cleared for discharge home self-care with resumption of previous [facility] services and family support.
== END 2024-04-12 15:25 | disposition home or self-care (01) | DRG 301 ==
LOC: HO.ED 14:26 → HO.EDOVER 16:05 → HO.IMC 18:07
PROVIDERS: Admitting Provider Hospitalist; Emergency Provider Emergency Medicine; PCP Physician Assistant; Visit Provider Hospitalist
DX: I87.2 Venous insufficiency (chronic) (peripheral) (principal); E78.5 Hyperlipidemia, unspecified; F41.1 Generalized anxiety disorder; I10 Essential (primary) hypertension; G30.9 Alzheimer's disease, unspecified; F02.B0 Dementia in other diseases classified elsewhere, moderate, without behavioral disturbance, psychotic disturbance, mood disturbance, and anxiety; R94.31 Abnormal electrocardiogram [ECG] [EKG]; R00.1 Bradycardia, unspecified; T44.1X5A Adverse effect of other parasympathomimetics [cholinergics], initial encounter; Z79.899 Other long term (current) drug therapy
CPT/HCPCS: 36415; 71045; 80048; 80053; 81003; 82565; 83735; 83880; 84153; 84403; 84484; 85007; 85027; 93005; 93970; 99285; C1758; J1650; J1940

== ENCOUNTER → 2024-04-11 11:28 | Outpatient (BNV) | payer MEDICARE, SELFPAY | PROVIDERS: Admitting Provider Hospitalist; Emergency Provider Emergency Medicine; PCP Physician Assistant; Visit Provider Internal Medicine Cardiovascular Disease | DX: R94.31 Abnormal electrocardiogram [ECG] [EKG] (principal) | CPT/HCPCS: 93010 ==

== ENCOUNTER → 2024-04-11 15:49 | Outpatient (BNV) | payer MEDICARE, SELFPAY | PROVIDERS: Admitting Provider Hospitalist; Emergency Provider Emergency Medicine; PCP Physician Assistant; Visit Provider Hospitalist | DX: R60.9 Edema, unspecified (principal); G30.1 Alzheimer's disease with late onset; F02.B11 Dementia in other diseases classified elsewhere, moderate, with agitation; E78.1 Pure hyperglyceridemia; I10 Essential (primary) hypertension | CPT/HCPCS: 99223; 99239 ==

== ENCOUNTER 2024-04-13 14:50 | Outpatient (AMB) | payer MEDICARE, SELFPAY ==
--- NOTE | 2024-04-13 14:55 | A.OFFPC_ITS ---
Vital Signs 04/13/24 14:56 Height 5 ft 6 in Weight 149 lb 4.047 oz BMI 24.1 BP 104/54 L Blood Pressure Location Lt brachial Position Sitting Pulse 91 Pulse Source Pulse Oximeter Pulse Oximetry (%) 94 Oxygen Delivery Method Room Air Intake Visit Reasons: f/u walkin pedial edema Intake Note: Patient is here for hospital discharge follow up. [place] [facility] [place] Celery Stripper Required: No Accompanied by: Spouse and daughter Allergies No Known Allergies Allergy (Verified 04/13/24 15:16) Medication List - Last Reconciled 04/13/24 by Thierry Monahan PA-C buspirone 5 mg PO TID diclofenac sodium 1% 2 grams topical QID PRN diclofenac sodium 75 mg PO BID PRN 15 days donepezil (Aricept) 10 mg PO DAILY 90 days lisinopril 10 mg PO DAILY 90 days lovastatin 40 mg PO DAILY meclizine 25 mg PO DAILY PRN melatonin 6 mg (2 x 3 mg) PO BEDTIME 30 days memantine 28 mg PO DAILY 30 days omega 0-cgg-exj-fish oil 300-1,000 mg (Fish Oil) 1 cap PO DAILY quetiapine 12.5 mg (1/2 x 25 mg) PO BEDTIME Tobacco use date assessed: 12/04/23 Dental Screening Dental Screen Date: 05/15/23 HPI f/u walkin pedial edema HPI Details Patient is an 83-year-old male here today for hospital discharge follow-up. Patient has a past medical history significant for Alzheimer's dementia, osteoarthritis, generalized anxiety disorder hyperlipidemia and hypertension. Patient recent admitted to [facility] with acute worsening lower extremity edema. Workup did show mild elevation in his BNP. He was given IV Lasix 40 mg with rapid improvement of his lower extremity edema. He clinically did not appear to be in Congestive heart failure. Thought was that he had venous insufficiency exacerbated by recent use of Seroquel therefore Seroquel was reduced to 12.5 mg at night for sleep. He also takes Aricept 10 mg daily for his advanced dementia. Both Aricept and Seroquel can cause QT prolongation and that is will was seen on EKG. --> PLAN: Due to patient's elevated BNP and bilateral lower extremity edema will send for transthoracic echocardiogram to evaluate patient's EF for heart failure. Also will continue him on low-dose of Seroquel to help him sleep as it has been effective per family. Laboratory Tests 04/11/24 04/12/24 10:30 06:27 RBC 3.90 L Hgb 10.6 L Creatinine 0.78 0.81 B-Natriuretic Pept waqar 129 H PFSH Medical History Malignant neoplasm prostate Alzheimer's dementia Prostate cancer Acid reflux Primary osteoarthritis of left knee Prostate cancer Elevated PSA Tendinitis of right rotator cuff Rotator cuff tear Rotator cuff tear arthropathy of right shoulder Surgical History Hx of release of tendon H/O hand surgery History of tonsillectomy Family History Father Liver cancer Mother Heart disease Brother Healthy adult male Social History Household Members: Unknown / Unable to assess Caregiver staying overnight: Yes Housing: Unknown / Unable to assess Alcohol intake: former Comment: seldom Patient Tobacco Use Status: Never used Tobacco e-Cigarette/Vaping Use: Never Used Second Hand Smoke Exposure: No service: No Current occupational status: retired Cognitive needs: Yes (cane) Hearing needs: No Vision needs: No Questionnaire Thrive Questionnaire Date Thrive assessed: 04/12/24 CAMILLA-7 AMB Questionnaire CAMILLA-7 Date CAMILLA - 7 assessed: 12/04/23 Source: Developed by Drs. Brandon Caldwell, Mary Rush, Raul Elizondo and colleagues, with an educational zaida from [employer]. Review of Systems Const Denies headache(s) Eyes Denies loss of vision ENT Denies vertigo, Denies dizziness, Denies headache(s) and Denies sore throat Card Denies chest pain, Denies leg edema and Denies lightheadedness Resp Denies cough, Denies hemoptysis and Denies wheezing GI Denies abdominal pain, Denies melena, Denies constipation, Denies diarrhea and Denies vomiting Denies dysuria, Denies urinary frequency and Denies urinary urgency Musc Denies arthralgias, Denies joint swelling, Denies numbness and Denies tingling Neuro Denies Abnormal speech present, Denies behavioral changes, Reports confusion, Denies vertigo, Denies dizziness, Denies headache(s), Denies loss of vision, Denies memory loss, Denies numbness and Denies tingling Psych Denies anxiety, Denies behavioral changes, Reports confusion, Denies depression, Denies memory loss and Denies panic attacks Graeme/Lymph Denies easy bleeding and Denies easy bruising Aller/Immun Denies wheezing Physical exam (Primary Care) Vital Signs: Last Vital Signs Pulse 91 04/13/24 14:56 BP 104/54 L 04/13/24 14:56 Pulse Ox 94 04/13/24 14:56 Oxygen Delivery Method Room Air 04/13/24 14:56 BMI result Body Mass Index 24.1 Tobacco/Smoking Status: Tobacco use Status Tobacco use date assessed 12/04/23 04/13/24 14:56 Patient Tobacco Use Status Never used Tobacco 04/13/24 14:56 e-Cigarette/Vaping Use Never Used 04/13/24 14:56 Thrive Assessment: Date of Thrive Assessment Date Thrive assessed 04/12/24 04/13/24 14:56 Const General: healthy appearing, no acute distress, alert, awake and confusion Nutritional Appearance: well nourished Orientation/consciousness: oriented to person, oriented to place, oriented to time and confusion HENMT Ears: TM's normal bilaterally General nose exam: Normal nasal mucous membranes and turbinates present Eyes Conjunctivae: conjunctivae normal Sclerae: sclerae normal Pupils: Equal, round and reactive pupils present Neck Neck: Yes no lymphadenopathy and Yes no JVD Thyroid: Thyroid normal Carotids: no bruits Resp Effort & Inspection: normal respiratory effort and not tachypneic Auscultation: no crackles, no rales, no rhonchi and no wheezes Cardio Rate: regular rate Rhythm: regular rhythm Heart sounds: no murmurs and normal S1 and S2 GI Palpation (GI): Soft to palpation, nontender, no hepatomegaly and no splenomegaly Auscultation: normal bowel sounds Skin General skin exam: no rashes or lesions noted and dry skin Neuro General: oriented to person, oriented to place, oriented to time and confusion Cranial nerves: Yes Equal, round and reactive pupils present Speech: No Abnormal speech present Gait exam (Neuro): Normal gait present Motor exam (neuro): no tremor noted Extrem Other: 2+ PITTING EDEMA TO BILATERAL LOWER EXTREMITIES PER Right upper extremity: full ROM Left upper extremity: full ROM Right lower extremity: full ROM and edema Left lower extremity: full ROM and edema Psych Mental Status: mental status grossly abnormal Speech and movement: Normal speech and movement present Affect: normal affect Attitude: cooperative Thought process: Normal thought process present Assessment and Plan Assessment & Plan (1) Hospital discharge follow-up: Code(s): Z09 - Encounter for follow-up examination after completed treatment for conditions other than malignant neoplasm (2) Alzheimer's dementia: Comment: moderate to severe Code(s): G30.9 - Alzheimer's disease, unspecified; F02.80 - Dementia in other diseases classified elsewhere, unspecified severity, without behavioral disturbance, psychotic disturbance, mood disturbance, and anxiety Qualifiers: Alzheimer's disease onset: late onset Dementia behavioral or psychological symptom: with agitation Dementia severity: moderate Qualified Code(s): G30.1 - Alzheimer's disease with late onset; F02.B11 - Dementia in other diseases classified elsewhere, moderate, with agitation Plan: As per HPI patient does have moderate to severe dementia. He is followed by Neurology. He continues on Aricept to slow progression of disease. Also on Seroquel to help with sleep and agitation at night. There were some concerns that her ?with causing lower extremity edema thus advised to take half dose at 12.5 mg at night (3) Lower extremity edema: Code(s): R60.0 - Localized edema Plan: As per HPI, patient had 1 day hospitalization for acute lower extremity edema. Rapid the resolved with IV Lasix. Will consider starting oral tablets of Lasix. For now will reduce dose of Seroquel as thinking this is the side effect. Also advised on elevating legs and using some sort of compression stockings over the lower extremities to help with swelling. (4) QT prolongation: Code(s): R94.31 - Abnormal electrocardiogram [ECG] [EKG] Plan: Noted to have QT prolongation likely due to the combination of Aricept and Seroquel. Will reduce dose of Seroquel per (5) Elevated brain natriuretic peptide (BNP) level: Code(s): R79.89 - Other specified abnormal findings of blood chemistry Plan: Had slightly elevated BNP during hospitalization in the setting of bilateral lower extremity edema. Will send for echocardiogram to evaluate patient's ejection fraction. Will consider Cardiology evaluation Orders: Orders CA echo transthoracic complete 04/13/24 R79.89 - Other specified abnormal findings of blood chemistry NT-proBNP 04/13/24 R79.89 - Other specified abnormal findings of blood chemistry Coding Level of Care Code Est Pt Level 4 (45487) Diagnoses Hospital discharge follow-up Z09 Moderate late onset Alzheimer's dementia with agitation G30.1; F02.B11 Alzheimer's disease onset: late onset Dementia behavioral or psychological symptom: with agitation Dementia severity: moderate Lower extremity edema R60.0 QT prolongation R94.31 Elevated brain natriuretic peptide (BNP) level R79.89
[2024-04-13 14:56] VITALS: BP 104/54; PULSE 91; O2SAT 94; BMI 24.1
== END 2024-04-13 15:47 | disposition home or self-care (01) ==
PROVIDERS: PCP Physician Assistant; Visit Provider Physician Assistant
DX: Z09 Encounter for follow-up examination after completed treatment for conditions other than malignant neoplasm (principal); G30.1 Alzheimer's disease with late onset; F02.B11 Dementia in other diseases classified elsewhere, moderate, with agitation; R60.0 Localized edema; R94.31 Abnormal electrocardiogram [ECG] [EKG]; R79.89 Other specified abnormal findings of blood chemistry
CPT/HCPCS: 99214

== ENCOUNTER 2024-05-19 13:30 | Outpatient (AMB) | payer MEDICARE, SELFPAY ==
--- NOTE | 2024-05-19 13:32 | MHC.PC.OV ---
Vital Signs 05/19/24 13:41 Height 5 ft 6 in Weight 156 lb 11.979 oz BMI 25.3 BP 130/68 Blood Pressure Location Lt brachial Position Sitting Pulse 74 Pulse Source Pulse Oximeter Pulse Oximetry (%) 95 Oxygen Delivery Method Room Air Intake Visit Reasons: Annual Exam Safety And Occupational Health Manager Required: No Accompanied by: Spouse Allergies No Known Allergies Allergy (Verified 05/19/24 13:49) Medication List - Last Reconciled 05/19/24 by Thierry Monahan PA-C buspirone 5 mg PO TID diclofenac sodium 1% 2 grams topical QID PRN diclofenac sodium 75 mg PO BID PRN 15 days donepezil (Aricept) 10 mg PO DAILY 90 days furosemide 20 mg PO Q OTHER DAY 20 days lisinopril 10 mg PO DAILY 90 days lovastatin 40 mg PO DAILY meclizine 25 mg PO DAILY PRN melatonin 6 mg (2 x 3 mg) PO BEDTIME 30 days memantine 28 mg PO DAILY 30 days omega [id number]-[id number]-fish oil 300-1,000 mg (Fish Oil) 1 cap PO DAILY quetiapine 12.5 mg (1/2 x 25 mg) PO BEDTIME Tobacco use date assessed: 12/04/23 Dental Screening Dental Screen Date: 05/15/23 [facility] Annual Exam HPI Details Patient is an 83-year-old male here today for routine annual physical. Patient has a past medical history significant for advancing Alzheimer's, prostate cancer, anxiety, osteoarthritis. Recently seen at the hospital for bilateral lower extremity edema that thought to be due to his Seroquel dose. Family has been wrapping patient's legs and he has been taken furosemide with decent relief. Does have an upcoming echocardiogram to evaluate for any structural heart disease/cardiomyopathy. Alzheimer's disease: Followed by Neurology and continues on Aricept and half dose of Seroquel at this time for sleep and agitation. Now has home nursing coming to us to check his vitals and help with med management. Mickey s dementia seems to have been progressing over the last few months. Family discussing rehab placement though this is still undecided. .. Prostate cancer: Continues to follow urology. Vaccines: Up-to-date with COVID vaccine, pneumonia vaccine, flu vaccine, needs tetanus vaccine [facility] Medical History HLD (hyperlipidemia) HTN (hypertension) Malignant neoplasm prostate Alzheimer's dementia Prostate cancer Acid reflux Primary osteoarthritis of left knee Prostate cancer Elevated PSA Tendinitis of right rotator cuff Rotator cuff tear Rotator cuff tear arthropathy of right shoulder Surgical History Hx of release of tendon H/O hand surgery History of tonsillectomy Family History Father Liver cancer Mother Heart disease Brother Healthy adult male Social History Household Members: Unknown / Unable to assess Caregiver staying overnight: Yes Housing: Unknown / Unable to assess Alcohol intake: former Comment: seldom Patient Tobacco Use Status: Never used Tobacco e-Cigarette/Vaping Use: Never Used Second Hand Smoke Exposure: No service: No Current occupational status: retired Cognitive needs: Yes (cane) Hearing needs: No Vision needs: No Questionnaire Thrive Questionnaire Date Thrive assessed: 04/12/24 CAMILLA-7 AMB Questionnaire CAMILLA-7 Date CAMILLA - 7 assessed: 12/04/23 Source: Developed by Drs. Brandon Caldwell, Mary Rush, Raul Elizondo and colleagues, with an educational zaida from [employer]. Review of Systems Const Denies body aches, Denies chills, Denies excessive sweating, Denies fatigue, Denies fever(s) and Denies headache(s) Eyes Denies blurry vision ENT Denies dysphagia, Denies vertigo, Denies dizziness, Denies headache(s), Denies hearing loss and Denies tinnitus Card Denies chest pain, Denies chest pain with activity, Denies syncope, Denies irregular heart rhythm and Denies dyspnea Resp Denies chest congestion, Denies cough, Denies hemoptysis, Denies dyspnea and Denies wheezing GI Denies abdominal pain, Denies melena, Denies hematochezia, Denies coffee ground emesis, Denies dysphagia, Denies diarrhea, Denies nausea and Denies vomiting Denies difficulty urinating, Denies dysuria, Denies urinary frequency, Denies urinary hesitancy and Denies urinary urgency Musc Denies arthralgias, Denies limited range of motion, Denies muscle cramps and Denies muscle weakness Skin/Breast Denies rash and Denies skin ulcer Neuro Denies Abnormal speech present, Denies confusion, Denies vertigo, Denies dizziness, Denies syncope, Denies headache(s), Denies memory loss and Denies seizure-like activity Psych Denies anxiety, Denies confusion, Denies depression, Denies memory loss, Denies panic attacks and Denies paranoia Endo Denies excessive sweating, Denies fatigue, Denies flushing, Denies polydipsia and Denies polyuria Aller/Immun Denies wheezing Physical exam (Primary Care) Vital Signs: Last Vital Signs Pulse 74 05/19/24 13:41 BP 130/68 05/19/24 13:41 Pulse Ox 95 05/19/24 13:41 Oxygen Delivery Method Room Air 05/19/24 13:41 BMI result Body Mass Index 25.3 Tobacco/Smoking Status: Tobacco use Status Tobacco use date assessed 12/04/23 05/19/24 13:35 Patient Tobacco Use Status Never used Tobacco 05/19/24 13:35 e-Cigarette/Vaping Use Never Used 05/19/24 13:35 Thrive Assessment: Date of Thrive Assessment Date Thrive assessed 04/12/24 05/19/24 13:35 Const General: cooperative, comfortable, no acute distress, alert and awake; No confusion Orientation/consciousness: oriented to person, oriented to place, patient oriented x3 and No confusion HENMT Head: Yes normocephalic Ears: external ears normal and TM's normal bilaterally Face and sinus: No sinus tenderness Mouth: Normal oral and palatal mucosa present and tongue normal Teeth and gingiva: dentition normal and gingiva normal Throat: Yes posterior oropharynx normal, Yes tonsils normal and Yes uvula midline Eyes Conjunctivae: conjunctivae normal Sclerae: sclerae normal Pupils: Equal, round and reactive pupils present EOM: EOMs intact bilaterally Direct Ophthalmoscopy: No no photophobia Neck Neck: Yes no lymphadenopathy, No tender and Yes no JVD Thyroid: Thyroid normal Carotids: no bruits Chest Chest palpation & inspection: no tenderness Resp Effort & Inspection: normal respiratory effort, no audible wheezes, not labored and no stridor Auscultation: no crackles, no rales, no rhonchi and no wheezes Cardio Jugular venous distension: no JVD Rate: regular rate, not bradycardic and not tachycardic Rhythm: regular rhythm Bruits: no carotid bruits Peripheral pulses: Peripheral pulses 2+ throughout GI Inspection: Yes normal to inspection, No abdominal wall ecchymosis and No visible herniation Palpation (GI): Soft to palpation, nontender, no guarding, not rigid and No hepatosplenomegaly present Auscultation: normoactive bowel sounds General: Yes no CVA tenderness Back/Spine/Pelvis Back: no CVA tenderness and No back tenderness Cervical Spine: cervical ROM normal Thoracic/Lumbar Spine: thoracic and lumbar spine normal to inspection, straight leg raise negative bilaterally, No thoraco-lumbar ROM limited and No lumbar spinal tenderness Skin Lesions: no lesions Rashes: no rashes Wounds: no wounds Neuro General: oriented to person, oriented to place, patient oriented x3, CN's II-XI intact bilaterally and No confusion Cranial nerves: Yes Equal, round and reactive pupils present and Yes Normal accommodation reflex present Cognition (Neuro): normal cognition Speech: No Abnormal speech present Gait exam (Neuro): Normal gait present Motor exam (neuro): 5/5 motor strength present throughout Extrem Right upper extremity: full ROM; no cyanosis Left upper extremity: full ROM; no cyanosis Right lower extremity: no edema Left lower extremity: no edema Psych Appearance: grossly normal Mental Status: other Speech and movement: Slurred speech present Affect: normal affect Attitude: cooperative Thought process: abnormal and Tangential thought process present Immunizations tetanus-diphtheria toxoids-Td 2 Lf unit-2 Lf unit/0.5 mL IM suspension Performing Provider: Thierry Monahan PA-C Performing Location: [facility] Administered by: ANAHI Sands on 05/19/24 14:08 Dose Route Admin Location Dispensed Lot Number Expiration Date NDC Nurse Care Manager 0.5 mL IM Left Deltoid 0.5 mL [id number] 01/04/25 [address]-5 [employer] VIS Given Date VIS Provided VIS Publication Date 05/19/24 Single Vaccine 21 Eligibility Eligibility Date Funding Source Not VFC Eligible 05/19/24 State funds Assessment and Plan Assessment & Plan (1) Annual physical exam: Code(s): Z00.00 - Encounter for general adult medical examination without abnormal findings (2) HTN (hypertension): Code(s): I10 - Essential (primary) hypertension Qualifiers: Hypertension type: essential hypertension Qualified Code(s): I10 - Essential (primary) hypertension Plan: Patient's blood pressure acceptable today in office. Goal blood pressure remain below 140/90 (3) Alzheimer's dementia: Comment: moderate to severe Code(s): G30.9 - Alzheimer's disease, unspecified; F02.80 - Dementia in other diseases classified elsewhere, unspecified severity, without behavioral disturbance, psychotic disturbance, mood disturbance, and anxiety Qualifiers: Alzheimer's disease onset: late onset Dementia behavioral or psychological symptom: with agitation Dementia severity: moderate Qualified Code(s): G30.1 - Alzheimer's disease with late onset; F02.B11 - Dementia in other diseases classified elsewhere, moderate, with agitation Plan: Mickey continues to have progressing Alzheimer's dementia . He has lip support by his loving. He is oriented to time and person though not place. Now seeing neurology recommend CT of head to rule out any focal neurological findings. Clock drawing test today in office he was not able to perform. In 2019 able to draw clock with all numbers though not able to put long and short hand. Continues on Aricept. Also continues on Seroquel 12.5 mg for agitation/sleep at night (4) Prostate cancer: Comment: Intermittent hormone therapy Code(s): C61 - Malignant neoplasm of prostate Plan: Continues to follow Urology and continues to be treated for prostate cancer with hormonal injections. PSA much improved since starting new medication bicalutamide. (5) HLD (hyperlipidemia): Code(s): E78.5 - Hyperlipidemia, unspecified Qualifiers: Hyperlipidemia type: pure hypertriglyceridemia Qualified Code(s): E78.1 - Pure hyperglyceridemia Plan: Continues on statin therapy without any side effect. Most recent lipid panel showing excellent control of his total cholesterol and LDL. Goal LDL to remain below 130 (6) CAMILLA (generalized anxiety disorder): Code(s): F41.1 - Generalized anxiety disorder Plan: Patient seems to still suffer from anxiety to which he does continue on BuSpar 5 mg t.i.d.. Needs constant cuing to take his medications from his . (7) Osteoarthritis: Code(s): M19.90 - Unspecified osteoarthritis, unspecified site Qualifiers: Laterality: left Osteoarthritis location: knee Osteoarthritis type: primary Qualified Code(s): M17.12 - Unilateral primary osteoarthritis, left knee Plan: Has bilateral osteoarthritis of knees. Continues to use diclofenac though has not been helpful. Advised on role on lidocaine. Offered orthopedic referral for possible cortisone injection though family considering. Orders: Orders Td State Immunization 05/19/24 Z23 - Encounter for immunization Patient Instructions: Goal: Blood pressure to remain below 140/90, Barriers: Progressing dementia Coding Level of Care Code Est Pt Prev Care >65y(37064) Diagnoses Annual physical exam Z00.00 Essential hypertension I10 Hypertension type: essential hypertension Moderate late onset Alzheimer's dementia with agitation G30.1; F02.B11 Alzheimer's disease onset: late onset Dementia behavioral or psychological symptom: with agitation Dementia severity: moderate Prostate cancer C61 Pure hypertriglyceridemia E78.1 Hyperlipidemia type: pure hypertriglyceridemia CAMILLA (generalized anxiety disorder) F41.1 Primary osteoarthritis of left knee M17.12 Laterality: left Osteoarthritis location: knee Osteoarthritis type: primary
[2024-05-19 13:41] VITALS: BP 130/68; PULSE 74; O2SAT 95; BMI 25.3
== END 2024-05-19 14:22 | disposition home or self-care (01) ==
PROVIDERS: PCP Physician Assistant; Visit Provider Physician Assistant
DX: Z23 Encounter for immunization (principal)
CPT/HCPCS: 90471; 90714; 99397

== ENCOUNTER 2024-06-11 11:01 | Emergency (ER) | payer MEDICARE, SELFPAY ==
[2024-06-11] VITALS (8 sets, daily range): BP systolic 153–189; BP diastolic 82–124; PULSE 53–78; RESP 16–53; TEMP 36.4–37.1; O2SAT 96–100; BMI 24.2
--- NOTE | ~2024-06-11 | US_ITS ---
EXAMINATION: US VENOUS ULTRASOUND WITH DOPPLER LOWER EXTREMITY, BILATERAL CLINICAL INFORMATION: Lower leg swelling and pain COMPARISON: Ultrasound exam from 04/11/2024. Radiographs from 10/14/2019. TECHNIQUE: Ultrasound of the deep veins is performed from the hip to the calf with compression sonography and color and pulse Doppler assessment. Spectral analysis with color-flow imaging is performed. FINDINGS: The common femoral vein is compressible and exhibits a normal phasic waveform, bilaterally; this suggests that the iliac veins are widely patent above. Within each proximal thigh, the visualized profunda femoris vein is patent. The visualized greater saphenous veins and saphenofemoral junctions are normal. Superficial femoral vein is patent in the proximal, mid and distal aspect of each thigh. Popliteal veins are normal to the level of the trifurcation, bilaterally, and the posterior tibial and peroneal veins are patent. There is edema of subcutaneous tissues of each calf. Small amount of fluid is detected within the right knee joint. Moderate left knee joint effusion. There is echogenic debris within a 2.9 x 2 x 3.6 cm Power's cyst of the left popliteal fossa. Note that there was tricompartmental osteoarthritis and effusion of the left knee on radiographs from 10/14/2019. US/US venous duplex LE BI IMPRESSION: * No evidence of deep vein thrombosis in either lower extremity. * There is edema of subcutaneous tissues of each calf. * Bilateral knee joint effusions are present (left worse than right) along with a left-sided Power's cyst.
--- NOTE | ~2024-06-11 | XR_ITS ---
EXAMINATION: XR CHEST CLINICAL INFORMATION: Cough COMPARISON: 04/11/2024 TECHNIQUE: Frontal view of the chest was obtained. FINDINGS: Lungs are clear of other diminished volume due to highly positioned left hemidiaphragm and atelectasis at the left lung base. Cardiomediastinal silhouette is normal. XR/XR chest 1V IMPRESSION: No active cardiopulmonary disease. Atelectasis at the left lung base
--- NOTE | ~2024-06-11 | CT_ITS ---
EXAMINATION: CT ABDOMEN AND PELVIS WITH CONTRAST CLINICAL INFORMATION: Reason for Exam abdominal distention, tenderness COMPARISON: 10/01/2023 TECHNIQUE: Multidetector volumetric images were obtained from the superior aspect of the liver through the pubic symphysis following administration 85 mL of Omnipaque 350 intravenous contrast. Sagittal and coronal reformatted images were obtained on the technologist's workstation. Oral contrast: No This CT examination was performed using dose optimization techniques as appropriate, variously including the following: *Automated exposure control *Adjustment of mA and/or kV according to patient size (this includes techniques or standardized protocols for targeted exams where dose is matched to indication/reason for exam; i.e. extremities or head) *Use of iterative reconstruction technique DLP: 689 mGy-cm FINDINGS: LUNG BASES: Subsegmental bibasilar atelectasis. Coronary artery calcifications. LIVER, GALLBLADDER, AND BILIARY TREE: The liver is normal in size, shape, and attenuation. No focal hepatic lesion or biliary ductal dilatation is present. Gallbladder is physiologically distended with mild layering gallstones. PANCREAS: Mildly atrophic. SPLEEN: Unremarkable. ADRENAL GLANDS: Unremarkable. KIDNEYS AND URETERS: Bilateral nephrograms are symmetric. No hydronephrosis or obstructing calculus identified. Small right renal cysts; no follow-up recommended. BLADDER: Mildly distended, grossly unremarkable. GASTROINTESTINAL TRACT: Moderate stool throughout the colon along with gaseous distention. There is short segment of tapering in the proximal sigmoid colon, with the remainder of the sigmoid colon and rectum being collapsed. There is suggestion of some rectal wall thickening, not well assessed due to luminal collapse. The appendix is unremarkable. No free fluid or free air is seen. ABDOMINAL WALL: No significant hernia is appreciated. LYMPH NODES: Normal. VASCULAR: Scattered atherosclerotic calcifications. PELVIC VISCERA: Prostate measures approximately 3.4 cm in transverse dimension. OSSEOUS STRUCTURES: Multilevel degenerative changes in the spine. CT/CT abdomen pelvis w IV con IMPRESSION: 1. Moderate amount of stool throughout the colon along with gaseous distention. There is a short segment of tapering in the proximal sigmoid colon, with the remainder of the sigmoid colon and rectum being collapsed. While this collapse could reflect peristalsis, developing obstruction would be difficult to entirely exclude. Additionally, correlation with recent or follow-up colonoscopy would be helpful to exclude underlying mass. There is suggestion of some rectal wall thickening, not well assessed due to luminal collapse, which could represent proctitis. 2. Cholelithiasis.
--- NOTE | ~2024-06-11 | CT_ITS ---
EXAMINATION: CT HEAD WITHOUT CONTRAST CLINICAL INFORMATION: Confusion. Dysphagia. COMPARISON: 12/11/2023 TECHNIQUE: Contiguous axial imaging was performed from the skull base to vertex without intravenous administration of contrast. This CT examination was performed using dose optimization techniques as appropriate, variously including the following: *Automated exposure control *Adjustment of mA and/or kV according to patient size (this includes techniques or standardized protocols for targeted exams where dose is matched to indication/reason for exam; i.e. extremities or head) *Use of iterative reconstruction technique DLP: 858 mGy-cm FINDINGS: No intracranial hemorrhage, extra-axial surface collection, focal mass effect or midline shift. Atherosclerotic calcification of cavernous carotid arteries. Patchy hypoattenuation within the supratentorial white matter is compatible with sequela of chronic mild microangiopathy. The johansen-white matter differentiation is maintained. No evidence of an acute major vascular territory infarction. Moderate parenchymal volume loss and commensurate prominence of ventricles and sulci. No hydrocephalus. The cerebellar tonsils are in normal position. The calvarium is intact. The paranasal sinuses are well aerated. Prior ocular lens extractions. Temporomandibular joints are normal. CT/CT head/brain wo IV con IMPRESSION: * No intracranial mass, hemorrhage or other acute intracranial pathology compared to 12/11/2023. * Chronic diffuse parenchymal volume loss and chronic white matter changes of mild microangiopathy.
--- NOTE | 2024-06-11 11:28 | ED_ITS ---
HPI - General Adult General Chief complaint: General Medical Stated complaint: knee swelling edema Time Seen by Provider: 06/11/24 11:27 Source: patient, family (patient's son in law) and EMS Mode of arrival: EMS Limitations: physical limitation (patient has a history of Alzheimer's) History of Present Illness ED Provider: Isi Blankenship PA-C HPI narrative: Patient is a 83 year old assigned male at with a history of Alzheimer disease and lower extremity edema presenting to the emergency department today with worsening bilateral lower leg swelling and worsening confusion. Patient's family at the bed side states that the patient's lower legs have been getting much more swollen and recently he has had left knee pain. Patient's family also states the patient has been acting more confused lately and would like to explore options for STR vs. 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 Relieving factors: none Exacerbating factors: none Associated symptoms: confusion (worse than baseline) Treatments prior to arrival: none Related Data Home Medications ?Medication ?Instructions ?Recorded ?Confirmed diclofenac sodium 1 % topical gel 2 g topical QID PRN Pain 04/11/24 05/19/24 omega 0-[id number]-fish oil 300 1 cap PO DAILY 04/11/24 05/19/24 mg-1,000 mg capsule,delayed release (Fish Oil) Previous Rx's ?Medication ?Instructions ?Recorded melatonin 3 mg capsule 6 mg (2 x 3 mg) PO BEDTIME sleep 08/29/23 30 days #60 caps donepezil 10 mg tablet (Aricept) 10 mg PO DAILY 90 days #90 tabs 10/22/23 buspirone 5 mg tablet 5 mg PO TID #90 tabs 12/04/23 memantine 28 mg capsule 28 mg PO DAILY 30 days #30 ea 01/03/24 sprinkle,extended release 24hr meclizine 25 mg tablet 25 mg PO DAILY PRN for dizziness 02/25/24 #90 tabs quetiapine 25 mg tablet 12.5 mg (1/2 x 25 mg) PO BEDTIME 04/12/24 #1 tab furosemide 20 mg tablet 20 mg PO Q OTHER DAY 20 days #10 04/22/24 tabs diclofenac sodium 75 mg 75 mg PO BID PRN pain 15 days #30 06/04/24 tablet,delayed release tabs lisinopril 10 mg tablet 10 mg PO DAILY 90 days #90 tabs 06/04/24 lovastatin 40 mg tablet 40 mg PO DAILY #90 tabs 06/04/24 Allergies Allergy/AdvReac Type Severity Reaction Status Date / Time No Known Allergies Allergy Verified 06/11/24 11:20 Review of Systems 2 Constitutional: Constitutional: Reports no additional constitutional complaints, Denies chills, Denies fever(s) and Denies night sweats Eyes: Eyes: Reports no additional eye complaints, Denies blurry vision, Denies change in vision, Denies diplopia, Denies eye discharge, Denies loss of vision and Denies eye pain ENT: Denies dizziness Cardiovascular: Cardiovascular: Reports no additional cardiovascular complaints, Denies chest pain, Denies lightheadedness, Denies Loss of Consciousness and Denies dyspnea Respiratory: Respiratory: Reports no additional respiratory complaints and Denies dyspnea Gastrointestinal: Gastrointestinal: Reports no additional gastrointestinal complaints, Denies abdominal pain, Denies melena, Denies hematochezia, Denies change in bowel habits and Denies change in stool character Genitourinary: Genitourinary: Reports no additional male genitourinary complaints, Denies hematuria, Denies oliguria, Denies difficulty urinating, Denies dysuria, Denies urinary frequency, Denies urinary hesitancy, Denies urinary incontinence and Denies urinary urgency Musculoskeletal: Musculoskeletal: Reports no additional musculoskeletal complaints, Denies numbness and Denies tingling Comments: bilateral lower leg swelling, left leg pain Neurologic: Reports confusion (worse from patient's baseline), Denies dizziness, Denies loss of vision, Denies numbness and Denies tingling Psychiatric: Psychiatric: Reports no additional psychiatric complaints and Reports confusion (worse from patient's baseline) Endocrine: Endocrine: Reports no additional endocrine complaints Hematologic/Lymphatic: Hematologic/Lymphatic: Reports no additional hematologic/lymphatic complaints Allergic/Immunologic: Allergic/Immunologic: Reports no additional allergic/immunologic complaints PMFSH Past Medical History Attestation statement: The following information was validated with the patient. (patient's family at the bed side validated all information) Source: old records reviewed, obtained from family (patient's family at the bed side provided all history and ROS) and nursing notes reviewed Medical History HLD (hyperlipidemia) HTN (hypertension) Malignant neoplasm prostate Alzheimer's dementia Prostate cancer Acid reflux Primary osteoarthritis of left knee Prostate cancer Elevated PSA Tendinitis of right rotator cuff Rotator cuff tear Rotator cuff tear arthropathy of right shoulder Surgical History Hx of release of tendon H/O hand surgery History of tonsillectomy Family History Family History Father Liver cancer Mother Heart disease Brother Healthy adult male Social History Social History Household Members: Unknown / Unable to assess Housing: Unknown / Unable to assess Alcohol intake: former Comment: seldom Patient Tobacco Use Status: Never used Tobacco e-Cigarette/Vaping Use: Never Used Second Hand Smoke Exposure: No Advance Directives: No Advance Directives Information Provided: Yes Do you have a plan to hurt others: No Plan service: No Current occupational status: retired Cognitive needs: Yes (cane) Hearing needs: No Vision needs: No Physical Exam ED Vital Signs: Vital Signs - 24 hr 06/11/24 11:07 06/11/24 11:21 Temperature 97.6 F 97.6 F Pulse Rate 53 53 Respiratory Rate 53 H 53 H Blood Pressure 176/82 H 176/82 H Pulse Oximetry 100 100 Oxygen Delivery Method Room Air Room Air BMI result Body Mass Index 24.2 Const General: confusion (worse from patient's baseline) Nutritional Appearance: well nourished Orientation/consciousness: confusion (worse from patient's baseline) Limitations: no limitations HENMT Head: Yes normal to inspection and Yes atraumatic Ears: hearing grossly normal bilaterally and external ears normal General nose exam: Normal external nose present, no nasal discharge noted and no epistaxis Face and sinus: Yes normal facial exam, No abrasion and No laceration Mouth: Normal oral and palatal mucosa present, no drooling and no muffled voice Eyes General: appearance normal, both eyes and all related structures Periorbital: periorbital findings normal Eyelids: Yes eyelids normal Conjunctivae: conjunctivae normal Pupils: Equal, round and reactive pupils present EOM: EOMs intact bilaterally Neck Neck: Yes normal visual inspection, Yes full ROM and Yes no lymphadenopathy Chest Chest palpation & inspection: normal inspection of the chest Resp Effort & Inspection: normal respiratory effort and able to speak in complete sentences GI Inspection: Yes normal to inspection Neuro General: confusion (worse from patient's baseline) Cranial nerves: Yes Equal, round and reactive pupils present Extrem Other: bilateral lower leg swelling, 2+ pitting edema bilaterally General: Yes full ROM and Yes capillary refill normal Psych Appearance: grossly normal Mental Status: mental status grossly normal Affect: normal affect Attitude: cooperative Thought process: Normal thought process present Thought content: Normal thought content present Insight: Good insight present (Psych) Medical Decision Making Medical Decision Making [facility] Narrative: Patient is an 83 year old assigned female at with a history of Alzheimer presenting to the emergency department today with bilateral lower leg edema and left knee pain. Patient's physical exam was as noted in the physical exam portion of this note. Patient's blood work was unremarkable. Patient's urine is pending. Patient's EKG was unremarkable. Patient's chest x-ray showed no acute process. Patient's bilateral lower leg US showed no DVT but did show edema and a power's cyst in the left knee. I explained my physical exam findings as well as all test results to the patient and the patient's family at the bed side. I answered all questions asked by the patient and the patient's family at the bed side. Patient will remain in the department for physical therapy and case management evaluations. Differential Diagnosis Differential Diagnoses: The differential diagnosis associated with the presentation includes Bilateral lower leg edema Progressing Alzheimer's Power's cyst Admission/Observation Consideration of admission/observation: Escalation of care including admission/observation considered Patient would have been admitted to the hospital had his work up had any findings where hospital admission was appropriate and his clinical presentation warranted hospital admission. Lab Data [facility] Lab Attestation statement: I reviewed the patient's lab results. My interpretation of these results are in the MDM Rationale portion of this note. 06/11/24 11:34 06/11/24 11:34 Labs: Lab Results 06/11/24 Range/Units 11:34 WBC 5.1 (4.8-10.8) X10*3/uL RBC 4.25 L (4.60-5.80) X10*6/uL Hgb 11.6 L (14.0-18.0) g/dl Hct 35.8 L (42.0-52.0) % MCV 84.2 (80.0-98.0) fL MCH 27.3 (27.0-33.0) pg MCHC 32.4 (31.0-36.0) g/dl RDW 16.7 H (11.0-16.0) % Plt Count 223 (160-400) X10*3/uL MPV 10.1 (9.4-12.4) fL Immature Gran % (Auto) 0.2 (0.0-0.4) % Neut % (Auto) 64.2 (45-73) % Lymph % (Auto) 21.5 (20-40) % [place] % (Auto) 10.1 (2-11) % Eos % (Auto) 3.4 (0-4) % Baso % (Auto) 0.6 (0-2) % Lymph # (Auto) 1.1 L (1.2-4.9) X10*3/uL [place] # (Auto) 0.5 (0.1-1.2) X10*3/uL Eos # (Auto) 0.2 (0.0-0.4) X10*3/uL Baso # (Auto) 0.0 (0.0-0.2) X10*3/uL Abs Immat Gran (auto) 0.01 (0.00-0.03) X10*3/uL Absolute Neuts (auto) 3.3 (2.0-8.3) x10*3/uL Absolute Nucleated RBC 0.000 (0.0-0.012) X10*3/uL Nucleated RBC % (auto) 0.0 (0.0-0.2) /100WBC PT 10.8 L (11.1-13.3) SEC INR 0.9 (0.9-1.1) APTT 30.0 (26.0-36.8) SEC Sodium 143 (135-145) mmol/L Potassium 4.1 D (3.3-5.1) mmol/L Chloride 104 (96-108) mmol/L Carbon Dioxide 27 (22-29) mmol/L Anion Gap 16 (12-20) BUN 23 H (9-16) mg/dL Creatinine 0.90 (0.5-1.4) mg/dL Estim Creat Clear Calc 58.0 Estimated GFR > 60 Random Glucose 101 (60-115) mg/dL Calcium 10.2 D (8.4-10.2) mg/dL Magnesium 2.3 (1.6-2.6) mg/dL Total Bilirubin 0.4 (0.0-1.0) mg/dL AST 28 (5-37) U/L ALT 19 (0-40) U/L Alkaline Phosphatase 118 H (39-117) U/L Troponin I High Sens < 2.7 (<3.5-35.0) ng/L B-Natriuretic Peptide 115 H (<100) pg/mL Total Protein 7.9 (6.5-8.0) g/dL Albumin 4.5 (3.5-5.0) g/dL Influenza Type A (PCR) NEGATIVE (Negative) Influenza Type B (PCR) NEGATIVE (Negative) RSV RNA Qual (PCR) NEGATIVE (Negative) SARS-CoV-2 RNA (RT-PCR) NEGATIVE (Negative) Independent Interpretation I performed an independent interpretation of an: EKG, Plain X-Ray and Ultrasound Interpretation: My interpretation is in agreement with the radiologist's impression of these imaging studies. - EXAMINATION: XR CHEST CLINICAL INFORMATION: Cough COMPARISON: 04/11/2024 TECHNIQUE: Frontal view of the chest was obtained. FINDINGS: Lungs are clear of other diminished volume due to highly positioned left hemidiaphragm and atelectasis at the left lung base. Cardiomediastinal silhouette is normal. XR/XR chest 1V IMPRESSION: No active cardiopulmonary disease. Atelectasis at the left lung base Dictated By: Juan Jose Mason MD Signed By: Electronically signed by Juan Jose Mason MD 06/11/24 1204 - EXAMINATION: US VENOUS ULTRASOUND WITH DOPPLER LOWER EXTREMITY, BILATERAL CLINICAL INFORMATION: Lower leg swelling and pain COMPARISON: Ultrasound exam from 04/11/2024. Radiographs from 10/14/2019. TECHNIQUE: Ultrasound of the deep veins is performed from the hip to the calf with compression sonography and color and pulse Doppler assessment. Spectral analysis with color-flow imaging is performed. FINDINGS: The common femoral vein is compressible and exhibits a normal phasic waveform, bilaterally; this suggests that the iliac veins are widely patent above. Within each proximal thigh, the visualized profunda femoris vein is patent. The visualized greater saphenous veins and saphenofemoral junctions are normal. Superficial femoral vein is patent in the proximal, mid and distal aspect of each thigh. Popliteal veins are normal to the level of the trifurcation, bilaterally, and the posterior tibial and peroneal veins are patent. There is edema of subcutaneous tissues of each calf. Small amount of fluid is detected within the right knee joint. Moderate left knee joint effusion. There is echogenic debris within a 2.9 x 2 x 3.6 cm Power's cyst of the left popliteal fossa. Note that there was tricompartmental osteoarthritis and effusion of the left knee on radiographs from 10/14/2019. US/US venous duplex LE BI IMPRESSION: * No evidence of deep vein thrombosis in either lower extremity. * There is edema of subcutaneous tissues of each calf. * Bilateral knee joint effusions are present (left worse than right) along with a left-sided Power's cyst. Dictated By: Devyn Ortega MD Signed By: Electronically signed by Devyn Ortega MD 06/11/24 1405 - Vent. Rate: 054 BPM Atrial Rate: 054 BPM P-R Int: 196 ms QRS Dur: 100 ms QT Int: 498 ms P-R-T Axes: 016 -14 104 degrees QTc Int: 472 ms Sinus bradycardia Minimal voltage criteria for LVH, may be normal variant ( R in aVL ) Nonspecific ST and T wave abnormality Prolonged QT Abnormal ECG When compared with ECG of 11-APR-2024 11:42, No significant change was found DD/ 1142 Radiology Impression Discussion of test interpretation with radiology: I have reviewed the radiologist's reading. Independent Historian Clinical information obtained from an independent historian. History obtained from or confirmed by: EMS (EMS provided additional history and confirmed the history provided by the patient's family.) and Other (patient's family at the bed side provided all history and ROS) Discharge Plan Discharge Clinical Impression: Power's cyst, Alzheimer disease, Edema Patient Disposition: Still a Patient Prescriptions: No Action melatonin 3 mg capsule 6 mg PO BEDTIME 30 Days Qty: 60 1RF donepezil [Aricept] 10 mg tablet 10 mg PO DAILY 90 Days Qty: 90 1RF memantine 28 mg capsule,sprinkle,ER 24hr 28 mg PO DAILY 30 Days Qty: 30 6RF meclizine 25 mg tablet 25 mg PO DAILY PRN (Reason: for dizziness) Qty: 90 2RF furosemide 20 mg tablet 20 mg PO Q OTHER DAY 20 Days Qty: 10 0RF lovastatin 40 mg tablet 40 mg PO DAILY Qty: 90 0RF lisinopril 10 mg tablet 10 mg PO DAILY 90 Days Qty: 90 0RF diclofenac sodium 75 mg tablet,delayed release (DR/EC) 75 mg PO BID PRN (Reason: pain) 15 Days Qty: 30 0RF omega 0-pzp-kio-fish oil [Fish Oil] 300-1,000 mg Capsule,Delayed Release(Dr/Ec) 1 cap PO DAILY diclofenac sodium 1 % gel 2 g topical QID PRN (Reason: Pain) Rx Instructions: apply to knee quetiapine 25 mg tablet 12.5 mg PO BEDTIME Qty: 1 0RF buspirone 5 mg tablet 5 mg PO TID Qty: 90 6RF Print Language: Tajik
--- NOTE | 2024-06-11 11:29 | ECG_ITS ---
Test Reason : weakness Blood Pressure : / mmHG Vent. Rate : 054 BPM Atrial Rate : 054 BPM P-R Int : 196 ms QRS Dur : 100 ms QT Int : 498 ms P-R-T Axes : 016 -14 104 degrees QTc Int : 472 ms Sinus bradycardia Minimal voltage criteria for LVH, may be normal variant ( R in aVL ) Nonspecific ST and T wave abnormality Prolonged QT Abnormal ECG When compared with ECG of 11-APR-2024 11:42, No significant change was found Referred By: Isi Blankenship Electronically Signed By:MICHAEL OLEA MD
[2024-06-11 11:51] LABS: MANUAL DIFF FLAG NO
[2024-06-11 11:53] LABS: Basophils Percent Auto 0.6 % (0-2); Eosinophils Absolute Auto 0.2 X10*3/uL (0.0-0.4); Eosinophils Percent Auto 3.4 % (0-4); Hematocrit 35.8 % (42.0-52.0); Hemoglobin 11.6 g/dl (14.0-18.0); Imm Gran Abs Auto 0.01 X10*3/uL (0.00-0.03); Imm Gran Pct Auto 0.2 % (0.0-0.4); Lymphocytes Absolute Auto 1.1 X10*3/uL (1.2-4.9); Lymphocytes Percent Auto 21.5 % (20-40); Mean Corpuscular HGB Conc 32.4 g/dl (31.0-36.0); Mean Corpuscular Hemoglobin 27.3 pg (27.0-33.0); Mean Corpuscular Volume 84.2 fL (80.0-98.0); Mean Platelet Volume 10.1 fL (9.4-12.4); Monocytes Absolute Auto 0.5 X10*3/uL (0.1-1.2); Monocytes Percent Auto 10.1 % (2-11); Neutrophils Absolute Auto 3.3 x10*3/uL (2.0-8.3); Neutrophils Percent Auto 64.2 % (45-73); Platelet Count 223 X10*3/uL (160-400); Red Blood Count 4.25 X10*6/uL (4.60-5.80); Red Cell Distribution Width 16.7 % (11.0-16.0); White Blood Count 5.1 X10*3/uL (4.8-10.8)
[2024-06-11 12:06] LABS: Alanine Aminotransferase 19 U/L (0-40); Albumin Level 4.5 g/dL (3.5-5.0); Alkaline Phosphatase 118 U/L (39-117); Anion Gap 16 (12-20); Aspartate Amino Transferase 28 U/L (5-37); Bilirubin Total 0.4 mg/dL (0.0-1.0); Blood Urea Nitrogen 23 mg/dL (9-16); Calcium 10.2 mg/dL (8.4-10.2); Carbon Dioxide 27 mmol/L (22-29); Chloride 104 mmol/L (96-108); Estimated Glomerular Filt Rate > 60; Glucose Random 101 mg/dL (60-115); Magnesium 2.3 mg/dL (1.6-2.6); Potassium 4.1 mmol/L (3.3-5.1); Sodium 143 mmol/L (135-145); Total Protein 7.9 g/dL (6.5-8.0)
[2024-06-11 12:07] LABS: INTERNATIONAL NORM RATIO 0.9 (0.9-1.1); Prothrombin Time 10.8 SEC (11.1-13.3)
[2024-06-11 12:10] LABS: B Type Natriuretic Peptide 115 pg/mL (<100)
[2024-06-11 12:14] LABS: Troponin-I High Sensitivity < 2.7 ng/L (<3.5-35.0)
[2024-06-11 12:33] LABS: Influenza A PCR NEGATIVE (Negative); Influenza B PCR NEGATIVE (Negative); Resp Syncy Virus RNA Qual PCR NEGATIVE (Negative); SARS COV2 PCR INHOUSE NEGATIVE (Negative)
--- NOTE | 2024-06-11 14:49 | MHC.CM.ED ---
Received case management consult from Isi MOSELEY. Patient came to the ER due to knee swelling and pain. Physical therapy eval completed. Short term rehabs is recommended. Met with patient, daughter, and son-in-law Maximino in regards to discharge planning. Patient lives with home with family help and some services. PCP verified. Patient has a HCP at home and will bring a copy in. A list of facilities contracted with [facility] provided to family. Family agreeable to referral being broadcasted to see what beds would be available. Referral made in [facility]. Continue to monitor for d/c needs.
[2024-06-11] MEDS: Furosemide 40 MG/4 ML VIAL IVPUSH (14:58)
[2024-06-11 15:49] LABS: Appearance Urine Clear; Color Urine Yellow; Glucose Urine UA Negative (Negative); Leukocyte Esterase Urine Negative (Negative); Nitrite Urine Negative (Negative); PH 7.5 (5.0-9.0); UMIC TRIGGER UACC YES; Urine Blood Trace (Negative); Urine Ketones Negative (Negative); Urine Protein Negative (Neg-Trace)
[2024-06-11 15:51] LABS: Bacteria Urine None Seen (None Seen); Hyaline Casts Urine 0-2 /LPF (0-2); Squamous Epithelial Cell Urine 0-2 /HPF (0-2); WBC Urine 0-5 /HPF (0-5)
--- NOTE | 2024-06-11 18:16 | PC.NURSE ---
Reoprt given to Willow ROSE in overflow. Waiting for bed to be cleaned.
--- NOTE | 2024-06-11 19:25 | MHC.CM.ED ---
HCP obtained and uploaded into [facility]. Family is requesting STR with transition to LTC. They have completed the MH application. There is a life insurance policy. Family is meeting with parlor to pre-arrange a . Family will bring in MH application. No bed offers yet. 3 facilities reviewing. 5 facilities have not yet responded. Pt is active with [facility]. CM following for discharge planning.
--- NOTE | 2024-06-12 00:37 | PC.NURSE ---
Pt sleeping at the bedside. No apparent distress noted. Breaths are even regular and unlabored with equal chest rises. Monitoring is ongoing.
[2024-06-12 05:57] VITALS: BP 145/83; PULSE 68; RESP 17; TEMP 36.2; O2SAT 94
--- NOTE | 2024-06-12 07:43 | PC.NURSE ---
Spoke with [facility] pharmacist this morning and she will add his name to the med list as med rec not done yet. If daughter comes in today, we will notify pharmacy and they will come to [facility] and get information as patient is unable to understand what meds he is on.
--- NOTE | 2024-06-12 08:34 | PHA.MEDREC ---
Addendum entered by Rose Osuna, [facility] 06/12/24 09:01: Maximino confirmed nothing has changed since last admission, now confirming the donepezil and memantine. Original Note: Pharmacy Consult ? Medication Reconciliation Pharmacy has completed the medication reconciliation. Called patients , Mehreen, she stated patient has a visiting nurse that takes care of everything. Mehreen was able to confirm patients OTC medications and prescription medications based off of bottles within their home. She also stated that she can not confirm nor deny if patient is still on his dementia medications; donepezil and memantine, left unconfirmed. She was able to confirm that patient is now on quetiapine HALF tablet at bedtime (12.5 mg) and also that the patient is not on furosemide as Mehreen was worried it would keep him in the bathroom . When I asked Mehreen for the visiting RN's phone number she provided me with [phone], when this phone number was called I was told that Mickey is not a patient of theirs. Reached out to Maximino to see if he may have a more up to date phone number. All medications are confirmed at this moment except the dementia medications due to lack of confirmation from Mehreen security coordinator.
--- NOTE | 2024-06-12 11:42 | PC.NURSE ---
patient's [place] catheter was changed as leaking and not on properly anymore. skin is intact and no breakdown noted
--- NOTE | 2024-06-12 11:45 | PC.NURSE ---
IV pulled as not in vein anymore. No IV's meds ordered.
--- NOTE | 2024-06-12 13:11 | MHC.EDTECH ---
Assisted patient with personal hygiene, changed patients linen and gown. Assisted patient with eating lunch due to patients confusion and inability to properly use utensils.
--- NOTE | 2024-06-12 13:37 | MHC.CM.ED ---
Patient remains in ER overflow. Copy of [employer] application obtained from [facility]. [facility] is unable to offer a bed. Referral faxed to [facility] [place]. Continue to monitor for d/c needs.
[2024-06-12 14:08] VITALS: BP 131/81; PULSE 77; RESP 16; TEMP 36.8; O2SAT 95
--- NOTE | 2024-06-12 14:11 | PC.NURSE ---
Patient wasn't feeling well, couldn't describe well how. VSS except for oxygen that was initially low but came up to 93-94 percent; his oxygen does dip periodically.
--- NOTE | 2024-06-12 14:37 | ECG_ITS ---
Test Reason : ABD PAIN Blood Pressure : / mmHG Vent. Rate : 067 BPM Atrial Rate : 067 BPM P-R Int : 174 ms QRS Dur : 082 ms QT Int : 394 ms P-R-T Axes : 032 -05 247 degrees QTc Int : 416 ms Normal sinus rhythm ST & T wave abnormality, consider lateral ischemia Abnormal ECG When compared with ECG of 11-JUN-2024 11:42, T wave inversion now evident in Anterior leads QT has shortened Referred By: Hector Abarca Electronically Signed By:MICHAEL OLEA MD
--- NOTE | 2024-06-12 14:42 | PC.NURSE ---
Pt. is in ED bed 10 and is on the shot hole shooter at this time.
[2024-06-12 14:43] VITALS: BP 143/67; PULSE 68; RESP 16; TEMP 36.7; O2SAT 98
[2024-06-12 14:57] LABS: MANUAL DIFF FLAG NO
[2024-06-12 14:59] LABS: Basophils Percent Auto 0.3 % (0-2); Eosinophils Absolute Auto 0.1 X10*3/uL (0.0-0.4); Eosinophils Percent Auto 0.9 % (0-4); Hematocrit 34.2 % (42.0-52.0); Hemoglobin 11.3 g/dl (14.0-18.0); Imm Gran Abs Auto 0.03 X10*3/uL (0.00-0.03); Imm Gran Pct Auto 0.5 % (0.0-0.4); Lymphocytes Absolute Auto 0.8 X10*3/uL (1.2-4.9); Lymphocytes Percent Auto 13.2 % (20-40); Mean Corpuscular Hemoglobin 27.6 pg (27.0-33.0); Mean Corpuscular Volume 83.4 fL (80.0-98.0); Mean Platelet Volume 10.3 fL (9.4-12.4); Monocytes Absolute Auto 0.6 X10*3/uL (0.1-1.2); Monocytes Percent Auto 9.9 % (2-11); Neutrophils Absolute Auto 4.8 x10*3/uL (2.0-8.3); Neutrophils Percent Auto 75.2 % (45-73); Platelet Count 242 X10*3/uL (160-400); Red Cell Distribution Width 16.7 % (11.0-16.0); White Blood Count 6.4 X10*3/uL (4.8-10.8)
[2024-06-12] MEDS: iohexoL 350 MG/ML 100 ML INFUS..BTL IV (15:04)
[2024-06-12 15:31] LABS: Potassium 3.5 mmol/L (3.3-5.1); Sodium 142 mmol/L (135-145)
[2024-06-12 15:32] LABS: Anion Gap 15 (12-20); Blood Urea Nitrogen 20 mg/dL (9-16); Carbon Dioxide 27 mmol/L (22-29); Chloride 104 mmol/L (96-108); Creatinine Clr Calc Pharmacy 58.7; Estimated Glomerular Filt Rate > 60; Glucose Random 124 mg/dL (60-115)
[2024-06-12 15:34] LABS: Alanine Aminotransferase 17 U/L (0-40); Aspartate Amino Transferase 22 U/L (5-37); Bilirubin Direct 0.1 mg/dL (0.0-0.5); Bilirubin Total 0.3 mg/dL (0.0-1.0); C Reactive Protein 2.15 mg/dL (< or = 0.50); Calcium 9.5 mg/dL (8.4-10.2)
[2024-06-12 15:35] LABS: Alkaline Phosphatase 107 U/L (39-117)
--- NOTE | 2024-06-12 15:51 | PC.NURSE ---
Pt. is on bedside camera monitor for confusion and attempting to get out of bed.
[2024-06-12 15:54] VITALS: BP 110/88; PULSE 73; RESP 14; TEMP 36.9; O2SAT 96
--- NOTE | 2024-06-12 15:54 | MHC.CM.ED ---
Clinical updates sent to facilities still following patient: [facility], [facility] and [facility]. [facility] is out of network with [facility]. However, they may be able to get auth if multiple denials. Continue to monitor for d/c needs.
[2024-06-12 15:55] LABS: Lipase 25 U/L (8-78)
--- NOTE | 2024-06-12 15:55 | MHC.EDTECH ---
This pct assumed care of patient at 1500 ,vitals taken ,patient awake and laying in bed ,Patient was reposition and boosted up in bed .Call avalos within Patient reach .
[2024-06-12 17:44] VITALS: BP 162/74; PULSE 66; RESP 16; TEMP 36.8; O2SAT 95
--- NOTE | 2024-06-12 18:11 | MHC.CM.ED ---
[facility] offered a bed and HCP/POA Maximino Welch has accepted the bed offer. Facility notified via [facility]. Auth pending. Expect patient will be here through Saturday, as he has HNE.
--- NOTE | 2024-06-12 18:37 | MHC.EDTECH ---
Patient awake ,was a 1:1 feed ,was fed by this pt ,Patient ate 100 % of grilled cheese ,soup ,chocolate and drank 480 ml fluids .Patient now moving to ed overflow .
[2024-06-12] MEDS: polyethylene glycoL 3350 17 GM POWD.PACK PO (19:22)
[2024-06-12 20:52] VITALS: BP 149/89; PULSE 68; RESP 16; TEMP 37.2; O2SAT 97
--- NOTE | 2024-06-13 02:51 | MHC.EDTECH ---
Pt found to be incontinent of urine. Tech and RN cleaned Pt, repostioned and warm blanket given. Call avalos within reach.
[2024-06-13 05:42] VITALS: BP 147/65; PULSE 65; RESP 17; TEMP 36.6; O2SAT 97
--- NOTE | 2024-06-13 08:26 | MHC.CM.ED ---
Addendum entered by Virginia Rosales 06/13/24 10:27: Received response from [facility]: they request [facility] contact the business office on Saturday, 06/15 for [facility] review as family is requesting STR to LTC. ED CM to contact family and inform them of plan. Original Note: Family has accepted [facility] offer: waiting for HNE to auth STR. Message sent to [facility] inquiring on auth status: Awaiting response
[2024-06-13] MEDS: polyethylene glycoL 3350 17 GM POWD.PACK PO (09:56)
[2024-06-13 14:23] VITALS: BP 170/79; PULSE 72; RESP 18; TEMP 37.1; O2SAT 95
--- NOTE | 2024-06-13 16:13 | MHC.EDTECH ---
This pct assumed care of patient at 1500 ,Patient clean and dry was reposition and boosted up in bed .Plan of care continue .
--- NOTE | 2024-06-13 18:02 | MHC.EDTECH ---
Patient was incontinent of urine ,sponge bath given ,Patient was fed by this pct ate 100 % of meat loaf ,mashed potato ,green beans and chocolate pudding for dessert ,drank 360 ml milk ,Patient now resting quietly in bed ,Plan of care continue .
[2024-06-13 20:37] VITALS: BP 164/70; PULSE 81; RESP 16; TEMP 36.3; O2SAT 96
--- NOTE | 2024-06-14 02:13 | MHC.EDTECH ---
0200 rounding done ,Pt was inc of urine care given Pt reposition warm blanket given .
[2024-06-14 06:00] VITALS: BP 179/86; PULSE 76; RESP 16; TEMP 36.6; O2SAT 97
--- NOTE | 2024-06-14 06:15 | PC.NURSE ---
pt resting comfortably throughout the night with eyes closed, breathing even and unlabored, no apparent distress, call avalos w/in reach
--- NOTE | 2024-06-14 08:33 | PC.NURSE ---
attempted to feed pt breakfast with one to one feed by PCT Hola, pt pocketing food, not following commands to chew and swallow food, appears to be choking on what he is swallowing. pt mentation is altered, word stephanie pandarg out at this staff member when assisting with a boost in bed. held the rest of breakfast tray and informed Mari MOSELEY of pts condition.
[2024-06-14 10:54] VITALS: BP 194/89; PULSE 96; RESP 14; O2SAT 96
[2024-06-14] MEDS: lisinopriL 10 MG TABLET PO (11:22)
[2024-06-14] MEDS: Donepezil HCl 10 MG TABLET PO (11:22)
--- NOTE | 2024-06-14 12:55 | PC.NURSE ---
Addendum entered by Amalia Quinn 06/14/24 13:02: family requesting pain medication for patient, provider made aware Original Note: patient was medicated per the MAR by placing medications in applesauce. was able to appropriately take sips of water. family at the bedside.
--- NOTE | 2024-06-14 14:19 | MHC.CM.ED ---
[facility] [employer] [facility] on 06/15 before giving auth to transfer. Pt has HNE primary but because he will likely need LTC, facility wants to ensure a payor will be available once HNE benefits term. ED CM to follow
--- NOTE | 2024-06-14 16:24 | PC.NURSE ---
found to be incontinent of urine. patient cleaned and repositioned in bed.
[2024-06-14] MEDS: Acetaminophen 325 MG TABLET 650 MG PO (16:40)
--- NOTE | 2024-06-14 21:50 | PC.NURSE ---
pt is resting quietly in bed at this time, no s/s of acute distress, resp with ease.
[2024-06-14 23:57] VITALS: BP 161/80; PULSE 83; RESP 16; TEMP 37.2; O2SAT 95
--- NOTE | 2024-06-15 00:04 | MHC.EDTECH ---
THIS PCT ASSUMED CARE OF PATIENT AT 2330 ,VITALS TAKEN ,PATIENT SLEEPING WAS CHECK FOR INCONTINENCE AND IS DRY ,PLAN OF CARE CONTINUE .
[2024-06-15 06:17] VITALS: BP 152/59; PULSE 62; RESP 16; TEMP 37.1; O2SAT 95
--- NOTE | 2024-06-15 06:18 | MHC.EDTECH ---
0600 rounding done ,vitals taken ,pt awake ,was inc bed bath given and mouth was swab , bedding change ,pt call avalos within pt reach .
--- NOTE | 2024-06-15 07:12 | PC.NURSE ---
report given to Yvette ROSE
--- NOTE | 2024-06-15 09:05 | MHC.CM.ED ---
Addendum entered by Teri Patterson 06/15/24 14:33: Insurance auth has been obtained by [facility]. They are unable to take admissions after 3pm. [facility] booked for 06/[address] [facility] with chart. Patient, son-in-law/HCP Ciera Stanton RN and Margarita MOSELEY aware. Original Note: Patient remains in ER overflow. [facility] is pursuing insurance auth. Continue to monitor for d/c needs.
--- NOTE | 2024-06-15 12:30 | PC.NURSE ---
Report taken from Yvette ROSE, assumed are of pt at this time. Pt incontinent of urine, cleaned and repositioned for comfort. Noted that pt is NPO pending speech consult due to pocketing food and inability to follow directions. No assessment documentedyet from speech- this RN contacted covering speech filtration supervisor, pt added to list awaiting consult. Insurance auth remains pending for [facility]. Will continue to monitor for additional needs.
[2024-06-15 14:28] VITALS: BP 185/83; PULSE 85; RESP 17; O2SAT 95
--- NOTE | 2024-06-15 14:32 | PC.NURSE ---
Pt resting comfortably, NAD. Remains NPO pending speech eval. Accepted at [facility] for tomorrow 06/16/24 at 0900. Family made aware.
--- NOTE | 2024-06-15 14:52 | PC.NURSE ---
Speech at bedside for consult.
--- NOTE | 2024-06-15 16:57 | MHC.SL.SWA ---
Speech Pathologist Impression: Oralpharyngeal Dysphagia Risk of Aspiration Due to: Dementia Dysphasia Diet Status: NPO Liquid Consistency and Strategies for Safe Swallow: Liquid Intake Recommendation: Thin Liquid Intake Strategies: Small Sips No Straws Double Swallow Solid Food Consistency: Dietary Recommendations: Grnd/Mech Altered (NDD2) Additional Modifications to Solid Foods: Recommend resume diet of GROUND/MECH ALTERED SOLIDS (NDD2) and THIN LIQUIDS. MEDS WHOLE with PUREE. Pt is a 1:1 feed, but encourage self-feeding as much as possible. Maintain aspiration precautions with all meals and meds. COLLAR TRIMMER will continue to follow for potential upgrade. Oral Medication Intake: Whole with Puree Please contact the pharmacy regarding appropriate crushable or liquid drug formulations that are available whenever modified delivery is recommended. Compensatory Strategies and Precautions to be Taken for Safe Swallow: Sitting Upright (90 deg) No Straw Liquids from Cup Small Bites and Sips Alternate Liquids/Solids Rate of Ingestion Change Supervision While Eating and Drinking for Safe Swallow: Total Supervision (1:1) Foods to Avoid: Avoid mixed consistency solids. Swallowing Recommended Treatments: Compens. Strategy Educat. Recommendation for Speech: Inpatient Speech Therapy Comment: Recommend resume diet of GROUND/MECH ALTERED SOLIDS (NDD2) and THIN LIQUIDS. MEDS WHOLE with PUREE. Pt is a 1:1 feed, but encourage self-feeding as much as possible. Maintain aspiration precautions with all meals and meds. COLLAR TRIMMER will continue to follow for potential upgrade. Frequency/Duration: Daily Date Range for Service Req: Admission Timeline to reassess: PRN Photolithographic Stripper Clinican/Clinical Fellow: No Supervisory Statement: I have reviewed and agree with the student/clinical fellow's documentation: N/A Speech Language Pathologist: Tomi Donaldson M.A., [facility]
--- NOTE | 2024-06-15 17:30 | PC.NURSE ---
Pt diet changed to Grnd/Mech Altered (NDD2) with thin liquids no straw. Dinner fed to pt, approx 30% consumed. Tolerated well. No change in physical assessment. Denies pain. Will continue to monitor.
--- NOTE | 2024-06-15 17:32 | MHC.EDTECH ---
This soil field technician fed this pt his food consisting of ground chicken, potatoes, and sweet potatoes. Pt stopped tech and stated that he did not want anymore. pt consumed about 30% of meal.
--- NOTE | 2024-06-15 19:00 | PC.NURSE ---
Report given to Roseline ROSE, pt exits my care at this time.
--- NOTE | 2024-06-15 19:11 | PC.NURSE ---
Received report from Ciera ROSE, assume care of pt at this time, cont plan of care
[2024-06-15] MEDS: Melatonin 3 MG TABLET 6 MG PO (20:56)
[2024-06-15] MEDS: QUEtiapine Fumarate 25 MG TABLET 12.5 MG PO (20:56)
[2024-06-15] MEDS: busPIRone HCl 5 MG TABLET PO (21:02)
[2024-06-15 21:59] VITALS: BP 98/58; PULSE 91; RESP 16; TEMP 37.1; O2SAT 95
--- NOTE | 2024-06-15 23:29 | PC.NURSE ---
report given ot oncoming nurse at 2300, all questions answered
[2024-06-16 04:45] VITALS: BP 133/52; PULSE 78; RESP 20; TEMP 37.2; O2SAT 94
[2024-06-16 08:19] VITALS: BP 138/70; PULSE 72; RESP 12; TEMP 37.1; O2SAT 93
[2024-06-16 09:26] VITALS: BP 138/70
[2024-06-16] MEDS: Pravastatin Sodium 40 MG TABLET PO (09:26)
[2024-06-16] MEDS: Donepezil HCl 10 MG TABLET PO (09:26)
[2024-06-16] MEDS: Multivitamin TABLET 1 TAB PO (09:26)
[2024-06-16] MEDS: Calcium Carbonate 750 MG TAB.CHEW 1500 MG PO (09:26)
[2024-06-16] MEDS: polyethylene glycoL 3350 17 GM POWD.PACK PO (09:26)
[2024-06-16] MEDS: Cyanocobalamin (Vitamin B-12) 500 MCG TABLET PO (09:26)
[2024-06-16] MEDS: lisinopriL 10 MG TABLET PO (09:26)
[2024-06-16] MEDS: busPIRone HCl 5 MG TABLET PO (09:26)
--- NOTE | 2024-06-16 11:01 | PC.NURSE ---
assumed care of pt at 0700, pt resting quietly in bed, pt ate 75% of breakfast w staff feeding assistance. pt medicated per JAN. pills taken one at a time, whole w water. initially planning for 0900 d/c via [facility] to [facility], facility requesting later p/u time of 1400, family aware per case management.
--- NOTE | 2024-06-16 11:04 | PC.NURSE ---
assumed care of pt at 0700, pt resting quietly in bed, pt ate 75% of breakfast w staff feeding assistance. pt medicated per JAN. pills taken one at a time, whole w water. initially planning for 0900 d/c via [facility] to [facility], facility requesting later p/u time of 1400, family aware per case management.
--- NOTE | 2024-06-16 12:17 | PC.NURSE ---
pt incontinent of urine, cleaned, bed bath given, clean linens and lauren, pt repositioned back in bed for comfort.
--- NOTE | 2024-06-16 14:47 | PC.NURSE ---
RN-RN report given to Adam Queen.
[2024-06-16 14:50] VITALS: BP 138/70; PULSE 72; RESP 12; TEMP 37.1; O2SAT 93
== END 2024-06-16 14:51 ==
PROVIDERS: Physician Assistant Medical; Emergency Provider Emergency Medicine; PCP Physician Assistant
DX: R60.0 Localized edema (principal); M79.605 Pain in left leg; M71.22 Synovial cyst of popliteal space [Baker], left knee; R05.9 Cough, unspecified; R45.1 Restlessness and agitation; G30.9 Alzheimer's disease, unspecified; F02.80 Dementia in other diseases classified elsewhere, unspecified severity, without behavioral disturbance, psychotic disturbance, mood disturbance, and anxiety; R14.0 Abdominal distension (gaseous); R00.1 Bradycardia, unspecified; Z03.818 Encounter for observation for suspected exposure to other biological agents ruled out; I10 Essential (primary) hypertension; E78.5 Hyperlipidemia, unspecified; C61 Malignant neoplasm of prostate; Z79.899 Other long term (current) drug therapy
CPT/HCPCS: 0241U; 36415; 70450; 71045; 74177; 80048; 80053; 80076; 81001; 83690; 83735; 83880; 84484; 85025; 85610; 85730; 86140; 93005; 93970; 96374; 97162; 99285; J1940; Q9967

== ENCOUNTER → 2024-06-11 11:29 | Outpatient (BNV) | payer MEDICARE, SELFPAY | PROVIDERS: Emergency Provider Emergency Medicine Emergency Medical Services; PCP Physician Assistant; Visit Provider Internal Medicine Cardiovascular Disease | DX: R94.31 Abnormal electrocardiogram [ECG] [EKG] (principal) | CPT/HCPCS: 93010 ==

== ENCOUNTER → 2024-06-12 14:37 | Outpatient (BNV) | payer MEDICARE, SELFPAY | PROVIDERS: Emergency Provider Emergency Medicine; PCP Physician Assistant; Visit Provider Internal Medicine Cardiovascular Disease | DX: R94.31 Abnormal electrocardiogram [ECG] [EKG] (principal) | CPT/HCPCS: 93010 ==